=== PATIENT | male | born 1965 | race Caucasian/White ===

== ENCOUNTER 2016-11-10 14:20 | Emergency (ER) | payer BC ==
--- NOTE | 2016-11-10 15:02 | UC ---
Throat Pain/Nasal Ramirez HPI - HPI Summary HPI Summary: Increasing nasal and max. sinus pressure for about a week. Did not feel cold symptoms first, thinks this is allergy-related, as he typically has sinusitis in the fall and the spring. Denies fever or trouble breathing. - History of Current Complaint Chief Complaint: UCRespiratory Stated Complaint: SINUS INFECTION Time Seen by Provider: 11/10/16 14:51 Hx Obtained From: Patient Onset/Duration: Gradual Onset, Lasting Days Severity: Mild Cough: Productive Associated Signs & Symptoms: Positive: Sinus Discomfort, Nasal Discharge - Allergies/Home Medications Allergies/Adverse Reactions: Allergies Allergy/AdvReac Type Severity Reaction Status Date / Time No Known Allergies Allergy Verified 08/01/16 13:26 PMH/Surg Hx/FS Hx/Imm Hx Endocrine History Of: Reports: Diabetes - TYPE 1 Cardiovascular History Of: Reports: Hypertension - ON MEDS Respiratory History Of: Reports: Asthma - FROM , BEING TREATED - Surgical History Surgical History: Yes Surgery Procedure, Year, and Place: LEFT CATARACT, 2008, [facility]. WISDOM TEETH 1984 - Family History Known Family History: Positive: Hypertension - Social History Lives: With Family Alcohol Use: Occasionally Substance Use Type: None Smoking Status (MU): Never Smoked Tobacco Review of Systems Constitutional: Negative Skin: Negative Eyes: Negative ENT: Nasal Discharge Respiratory: Negative Cardiovascular: Negative Gastrointestinal: Negative Genitourinary: Negative Motor: Negative Neurovascular: Negative Musculoskeletal: Negative Neurological: Negative Psychological: Negative All Other Systems Reviewed And Are Negative: Yes Physical Exam Triage Information Reviewed: Yes Appearance: Well-Appearing, No Pain Distress, Obese Vital Signs: Initial Vital Signs Temp 97.7 F 11/10/16 14:24 Pulse 84 11/10/16 14:24 Resp 18 11/10/16 14:24 BP 230/96 11/10/16 14:24 Pulse Ox 97 11/10/16 14:24 Vital Signs Reviewed: Yes Eye Exam: Normal Eyes: Positive: Conjunctiva Clear ENT: Positive: Hearing grossly normal, Nasal congestion, TMs normal, Other: - maxiallary sinus tenderness Dental Exam: Normal Neck exam: Normal Neck: Positive: Supple, Nontender, No Lymphadenopathy Respiratory Exam: Normal Respiratory: Positive: Chest non-tender, Lungs clear, Normal breath sounds, No respiratory distress, No accessory muscle use Cardiovascular Exam: Normal Cardiovascular: Positive: RRR, No Murmur Musculoskeletal Exam: Normal Neurological Exam: Normal Psychological Exam: Normal Skin Exam: Normal Throat Pain/Nasal Course/Dx - Differential Dx/Diagnosis Provider Diagnoses: sinusitis Discharge - Discharge Plan Condition: Stable Disposition: HOME Prescriptions: Azithromycin [Azithromycin 500 MG TAB] 500 mg PO DAILY #6 tab Patient Education Materials: Sinusitis (ED) Referrals: Jose Manuel Young MD [Primary Care Provider] - Additional Instructions: Get a follow-up appointment with your primary care provider if you do not see some improvement within the next 4 days.
[2016-11-10 15:08] VITALS: BP 178/88
== END 2016-11-10 15:10 | disposition home or self-care (01) ==
LOC: UCEAST 14:20
DX: J32.9 Chronic sinusitis, unspecified (principal); J45.909 Unspecified asthma, uncomplicated; I10 Essential (primary) hypertension; Z98.42 Cataract extraction status, left eye; E66.9 Obesity, unspecified
CPT/HCPCS: 99212; G0463

== ENCOUNTER 2017-05-13 10:43 | Emergency (ER) | payer BC ==
[2017-05-13 10:50] VITALS: BP 179/91
--- NOTE | 2017-05-13 11:21 | UC ---
Throat Pain/Nasal Ramirez HPI - HPI Summary HPI Summary: HISTORY OF CHRONIC ALLERGIES IN . SEVERAL DAYS OF WORSENING SINUS PRESSURE. PRODUCTIVE COUGH. WHEEZING AND COUGH. HISTORY OF ASTHMA - History of Current Complaint Chief Complaint: UCRespiratory Stated Complaint: SINUS Time Seen by Provider: 05/13/17 10:55 Hx Obtained From: Patient Onset/Duration: Gradual Onset, Lasting Days, Still Present Severity: Moderate Cough: Productive Associated Signs & Symptoms: Positive: Hoarseness, Sinus Discomfort, Nasal Discharge - Epiglottits Risk Factors Epiglottis Risk Factors: Negative - Allergies/Home Medications Allergies/Adverse Reactions: Allergies Allergy/AdvReac Type Severity Reaction Status Date / Time No Known Allergies Allergy Verified 08/01/16 13:26 PMH/Surg Hx/FS Hx/Imm Hx Previously Healthy: Yes - Surgical History Surgical History: Yes Surgery Procedure, Year, and Place: LEFT CATARACT, 2008, [facility]. WISDOM TEETH 1984 - Family History Known Family History: Positive: Hypertension, Respiratory Disease - Social History Occupation: Employed Full-time Lives: With Family Alcohol Use: Occasionally Substance Use Type: None Smoking Status (MU): Never Smoked Tobacco Review of Systems Constitutional: Fatigue Skin: Negative Eyes: Negative ENT: Nasal Discharge, Sinus Congestion, Sinus Pain/Tenderness Respiratory: Cough Cardiovascular: Negative Gastrointestinal: Negative Genitourinary: Negative Motor: Negative Neurovascular: Negative Musculoskeletal: Negative Neurological: Negative Psychological: Negative All Other Systems Reviewed And Are Negative: Yes Physical Exam Triage Information Reviewed: Yes Appearance: No Pain Distress, Well-Nourished, Ill-Appearing Vital Signs: Initial Vital Signs Temp 98.5 F 05/13/17 10:47 Pulse 76 05/13/17 10:47 Resp 20 05/13/17 10:47 BP 179/91 05/13/17 10:47 Pulse Ox 100 05/13/17 10:47 Vital Signs Reviewed: Yes Eye Exam: Normal ENT Exam: Normal ENT: Positive: Normal ENT inspection, Hearing grossly normal, TMs normal Dental Exam: Normal Neck exam: Normal Neck: Positive: Supple, Nontender, No Lymphadenopathy Respiratory: Positive: Chest non-tender, Lungs clear, Normal breath sounds, No respiratory distress, No accessory muscle use Cardiovascular Exam: Normal Cardiovascular: Positive: RRR, No Murmur, Pulses Normal, Brisk Capillary Refill Abdominal Exam: Normal Musculoskeletal Exam: Normal Musculoskeletal: Positive: Strength Intact, ROM Intact Neurological Exam: Normal Psychological Exam: Normal Psychological: Positive: Normal Response To Family Skin Exam: Normal Throat Pain/Nasal Course/Dx - Differential Dx/Diagnosis Differential Diagnosis/HQI/PQRI: Pharyngitis, Sinusitis, URI Provider Diagnoses: SINUSITIS; BRONCHITIS WITH BRONCHOSPASM Discharge - Discharge Plan Condition: Stable Disposition: HOME Prescriptions: Azithromycin TAB* [Zithromax TAB (Z-CAROLINA) 250 mg #6 tabs] 250 mg PO DAILY #6 tab Fluticasone NASAL SPRAY 50MCG* [Flonase NASAL SPRAY 50MCG*] 2 spray BOTH NARES DAILY #1 btl Patient Education Materials: Sinusitis (ED), Acute Bronchitis (ED), Bronchospasm (ED) Referrals: Jose Manuel Young MD [Primary Care Provider] -
== END 2017-05-13 11:21 | disposition home or self-care (01) ==
LOC: UCEAST 10:43
DX: J32.9 Chronic sinusitis, unspecified (principal); J20.9 Acute bronchitis, unspecified
CPT/HCPCS: 99212; G0463

== ENCOUNTER 2019-10-19 11:04 | Emergency (ER) | payer BC ==
--- OUTSIDE RECORDS SUMMARY | 2019-10-19 11:08 | XMS REPORT | Summary of Care ---
:1965 Author Organization [facility] Address [address] [place] [address] Care Team Providers Name Role Phone Jose Manuel Young MD Primary Care Provider Reason for Referral Diagnostic Radiology (Routine) Status Reason Specialty Diagnoses / Referred By Contact Referred To Procedures Contact Authorized Radiology Diagnoses Preoperative examination, unspecified Transplant Procedures NM Myocard Perfusion SPECT Multiple Study Stress Provider-Based [address] [address] Reason for Visit Diagnostic Radiology (Routine) Status Reason Specialty Diagnoses / Referred By Contact Referred To Procedures Contact Authorized Radiology Diagnoses Preoperative examination, unspecified Transplant Procedures NM Myocard Perfusion SPECT Multiple Study Stress Provider-Based [address] [address] Encounter Details Date Type Department Care Team Description 10/07/2019 Hospital Encounter Nuclear Medicine [facility], [facility] Kerwin Mendes MD examination, [facility] [address] unspecified [place], [place] [address]nd [address] [address] [place] [address] [phone] Allergies Active Allergy Reactions Severity Noted Date Comments Hydralazine Shortness Of Breath High 10/07/2019 documented as of this encounter (statuses as of 10/08/2019) Medications Medication Sig Dispensed Refills Start Date End Date Status Insulin Lispro 100 Inject into the 0 Active UNIT/ML Subcutaneous skin Three times Solution (HumaLOG) daily before meals Albuterol Sulfate HFA Inhale 2 puffs 0 Active 108 (90 Base) MCG/ACT into the lungs Inhalation Aerosol every 6 (six) Solution (PROVENTIL hours as needed HFA;VENTOLIN HFA) for Wheezing amLODIPine Besylate 10 Take 10 mg by 0 Active MG Oral Tablet mouth daily (NORVASC) Levothyroxine Sodium Take 100 mcg by 0 Active 100 MCG Oral Tablet mouth Daily (SYNTHROID, LEVOTHROID) Aspirin 81 MG Oral Take 81 mg by 0 Active Tablet Delayed Release mouth daily Atorvastatin Calcium 40 Take 40 mg by 0 Active MG Oral Tablet mouth every (LIPITOR) evening Metoprolol Succinate ER Take 200 mg by 0 Active 50 MG Oral Tablet mouth daily Extended Release 24 Hour (TOPROL-XL) Vitamin D3 25 MCG (1000 Take 1,000 Units 0 Active UT) Oral Tablet by mouth daily (CHOLECALCIFEROL) Furosemide 20 MG Oral Take 20 mg by 0 Active Tablet (LASIX) mouth daily documented as of this encounter (statuses as of 10/08/2019) Active Problems Problem Noted Date CKD (chronic kidney disease), stage IV Diabetes mellitus, type II Hypertension documented as of this encounter (statuses as of 10/08/2019) Social History Tobacco Use Types Packs/Day Years Used Date Never Assessed 0 Sex Assigned at Date Recorded Not on file Job Start Date Occupation Industry Not on file Not on file Not on file Travel History Travel Start Travel End No recent travel history available. documented as of this encounter Last Filed Vital Signs Not on filedocumented in this encounter Plan of Treatment Date Type Specialty Care Team Description 10/08/2019 Appointment Radiology Kerwin Mckenzie MD [address] [address] 10/08/2019 Appointment Radiology Kerwin Mckenzie MD [address] [phone] 08/12/2020 Office Visit Transplant Name Type Priority Associated Diagnoses Date/Time NM Myocard Perfusion Imaging Routine Preoperative examination, 10/07/2019 10:37 AM SPECT Multiple Study unspecified EST Stress Name Type Priority Associated Diagnoses Order Schedule NM Myocard Perfusion Imaging Routine Preoperative As Needed for 1 SPECT Multiple Study examination, unspecified Occurrences starting Stress 10/07/2019 until 10/07/2019 Health Maintenance Due Date Last Done Comments MMR Vaccines (1 of 1 - Standard 1964 series) Varicella Vaccines (1 of 2 - 1966 2-dose childhood series) Pneumococcal Vaccine: Pediatrics 1969 (0 to 5 Years) and At-Risk Patients (6 to 64 Years) (1 of 1 - PPSV23) Diabetic Foot Exam 1981 Dilated Retinal Exam 1981 Hemoglobin A1c 1981 Urine Microalbumin 1981 Hepatitis B Vaccines (1 of 3 - 1982 Risk 3-dose series) DTaP,Tdap,and Td Vaccines (2 - Td) 08/13/2015 07/16/2015 Influenza Vaccine 06/11/2019 Lipid Disorder Screening 08/05/2020 08/05/2019 Colon Cancer Screening 10 yrs 08/01/2026 08/01/2016 Pneumococcal Vaccine: 65+ Years (1 2028 of 2 - PCV13) HIV Screening Completed 08/05/2019 Hepatitis C Screening (B. Completed 08/05/2019 [id number]) HIB Vaccines Aged Out No longer eligible based on patient's age to complete this topic Hepatitis A Vaccines Aged Out No longer eligible based on patient's age to complete this topic IPV Vaccines Aged Out No longer eligible based on patient's age to complete this topic documented as of this encounter Results Not on filedocumented in this encounter Visit Diagnoses Diagnosis Preoperative examination, unspecified documented in this encounter Administered Medications Medication Order MAR Action Action Date Dose Rate Site TC-99M sestamibi New Bag 10/07/2019 10:45 AM 31.4 millicuries (CARDIOLITE) EST Intravenous, Once, 10/07/19 at 1045, For 1 dose, Imaging Protocol documented in this encounter
--- OUTSIDE RECORDS SUMMARY | 2019-10-19 11:08 | XMS REPORT | Summary of Care ---
:1965 Author Organization [facility] Address [address] [place] [address] Care Team Providers Name Role Phone Jose Manuel Young MD Primary Care Provider Reason for Visit Diagnostic Radiology (Routine) Status Reason Specialty Diagnoses / Referred By Referred To Procedures Contact Contact Authorized Diagnostic Diagnoses Preoperative examination, unspecified Transplant Radiology Procedures Echocardiogram 2D complete Provider-Based Uh [address] [facility] 2 [facility] [address] [place] [phone] Encounter Details Date Type Department Care Team Description 10/07/2019 Hospital Encounter Echocardiology [facility], [facility] [address] [place] [address] [address] [facility] [phone] [address] [place] [address] Allergies Active Allergy Reactions Severity Noted Date Comments Hydralazine Shortness Of Breath High 10/07/2019 documented as of this encounter (statuses as of 10/11/2019) Medications Medication Sig Dispensed Refills Start Date [...] as of this encounter (statuses as of 10/11/2019) Active Problems Problem Noted Date CKD (chronic kidney disease), stage IV Diabetes mellitus, type II Hypertension documented as of this encounter (statuses as of 10/11/2019) Social History Tobacco Use Types Packs/Day Years [...] Treatment Date Type Specialty Care Team Description 08/12/2020 Office Visit Transplant Health Maintenance Due Date Last Done Comments [...] 08/05/2019 Hepatitis C Screening (B. Completed 08/05/2019 [id number]) HIB Vaccines Aged Out No longer eligible based on patient's age to complete this topic Hepatitis A Vaccines Aged Out No longer eligible based on patient's age to complete this topic IPV Vaccines Aged Out No longer eligible based on patient's age to complete this topic documented as of this encounter Procedures Procedure Name Priority Date/Time Associated Diagnosis Comments ECHOCARDIOGRAM 2D Routine 10/07/2019 9:55 Preoperative Results for this COMPLETE AM EST examination, procedure are in unspecified the results section. documented in this encounter Results Echocardiogram 2D complete (10/07/2019 9:55 AM EST) Left Ventricular EF by Teichholz 40 [facility] ECHO Method Specimen Narrative Performed At HEIGHT: 180.3 cm (5 ft 11.0 in) [facility] ECHO WEIGHT: 113.4 kg (250.0 lbs) BP: BSA: FINDINGS ------- TYPE OF REPORT:This is a complete two-dimensional transthoracic echocardiogram (2D, M-mode, Doppler and color flow Doppler). ECG RHYTHM:Sinus rhythm. Resting bradycardia (HR<60bpm). STUDY QUALITY:This was a technically difficult study with limited images. LEFT VENTRICLE:The left ventricle is mildly dilated. Left ventricular wall thickness is normal. No obvious apical thrombus visualized. Overall LV systolic function is moderately reduced. Estimated LVEF 40%. There is diffuse hypokinesis of all onofre. RIGHT VENTRICLE:The right ventricle is normal in size. Right ventricular wall thickness is mildly increased. The right ventricular systolic function is mildly impaired. LEFT ATRIUM:The left atrium size by volume measurement is mildly abnormal (35-41 ml/m2). RIGHT ATRIUM:The right atrium is mildly enlarged. The right atrium size by volume measurement is abnormal. AORTIC VALVE:There is mild aortic valve sclerosis without stenosis. There is no aortic stenosis. There is no aortic regurgitation. MITRAL VALVE:Both mitral leaflets are mildly thickened. There is trace mitral regurgitation. There is no mitral stenosis. PULMONIC VALVE:Trace/mild (physiologic) pulmonic regurgitation present. TRICUSPID VALVE:The tricuspid valve was not well visualized. PERICARDIUM:There is a trivial pericardial effusion present. There is no evidence of cardiac tamponade. AORTA:The aortic root is dilated. IVC / HEPATIC VEINS:The inferior vena cava is normal in size with preserved inspiratory collapse. CONCLUSIONS 1. The left ventricle is mildly dilated. 2. Overall LV systolic function is moderately reduced. 3. Estimated LVEF 40%. 4. There is diffuse hypokinesis of all onofre. 5. Right ventricular wall thickness is mildly increased. 6. The right ventricular systolic function is mildly impaired. 7. The left atrium size by volume measurement is mildly abnormal (35-41 ml/m2). 8. The right atrium is mildly enlarged. 9. There is no aortic regurgitation. 10. There is trace mitral regurgitation. 11. Trace/mild (physiologic) pulmonic regurgitation present. 12. There is a trivial pericardial effusion present. 13. The aortic root is dilated(4.09cm). 14. The inferior vena cava is normal in size with preserved inspiratory collapse. 15. No prior reports available for comparison. Conclusions completed MEASUREMENTS Ao Diam: 4.09 cm LA Diam: 3.26 cm IVSd: 1.05 cm LVIDd: 5.95 cm LVPWd: 1.08 cm RV base: 5.12 cm RWT: 0.36 LALd A4C: 6.28 cm LAAd A4C: 24.71 cm LAEDV A-L A4C: 82.54 ml LAEDV MOD A4C: 74.88 ml LALd A2C: 5.38 cm LAAd A2C: 24.14 cm LAEDV A-L A2C: 92.01 ml LAEDV MOD A2C: 85.79 ml LAEDV(A-L): 94.19 ml LAEDV Index (A-L): 40.60 ml/m LAEDV(MOD BP): 84.95 ml LAEDVInd MOD BP: 36.62 ml/m RALd: 5.08 cm Obie A4C: 24.67 cm RAEDV A-L: 101.70 ml RAEDV INDEX: 43.84 ml/m RALs: 3.86 cm RAAs A4C: 12.99 cm RAESV A-L: 37.13 ml RAESV INDEX: 16.00 ml/m MV E Maksim: 0.70 m/s MV DecT: 340.60 ms MV Dec [place]: 2.05 m/s MV A Maksim: 0.52 m/s MV E/A Ratio: 1.34 MV PHT: 98.78 ms MVA By PHT: 2.23 cm LVOT Vmax: 0.81 m/s LVOT Vmean: 0.56 m/s LVOT maxP.65 mmHg LVOT meanP.38 mmHg AV Vmax: 0.89 m/s AV Vmean: 0.64 m/s AV maxP.19 mmHg AV meanP.77 mmHg AV VTI: 20.53 cm DVI: 1.05 Electronically Signed By: John Cm Sr, MD [facility] Electronically Signed On: 10/07/2019 11:34:46 Procedure Note Interface, Received Via [employer] - 10/07/2019 11:40 AM EST HEIGHT: 180.3 cm (5 ft 11.0 in) WEIGHT: 113.4 kg (250.0 lbs) BP: BSA: FINDINGS ------- TYPE OF REPORT:This is a complete two-dimensional transthoracic echocardiogram (2D, M-mode, Doppler and color flow Doppler). ECG RHYTHM:Sinus rhythm. Resting bradycardia (HR<60bpm). STUDY QUALITY:This was a technically difficult study with limited images. LEFT VENTRICLE:The left ventricle is mildly dilated. Left ventricular wall thickness is normal. No obvious apical thrombus visualized. Overall LV systolic function is moderately reduced. Estimated LVEF 40%. There is diffuse hypokinesis of all onofre. RIGHT VENTRICLE:The right ventricle is normal in size. Right ventricular wall thickness is mildly increased. The right ventricular systolic function is mildly impaired. LEFT ATRIUM:The left atrium size by volume measurement is mildly abnormal (35- 41 ml/m2). RIGHT ATRIUM:The right atrium is mildly enlarged. The right atrium size by volume measurement is abnormal. AORTIC VALVE:There is mild aortic valve sclerosis without stenosis. There is no aortic stenosis. There is no aortic regurgitation. MITRAL VALVE:Both mitral leaflets are mildly thickened. There is trace mitral regurgitation. There is no mitral stenosis. PULMONIC VALVE:Trace/mild (physiologic) pulmonic regurgitation present. TRICUSPID VALVE:The tricuspid valve was not well visualized. PERICARDIUM:There is a trivial pericardial effusion present. There is no evidence of cardiac tamponade. AORTA:The aortic root is dilated. IVC / HEPATIC VEINS:The inferior vena cava is normal in size with preserved inspiratory collapse. CONCLUSIONS 1. The left ventricle is mildly dilated. 2. Overall LV systolic function is moderately reduced. 3. Estimated LVEF 40%. 4. There is diffuse hypokinesis of all onofre. 5. Right ventricular wall thickness is mildly increased. 6. The right ventricular systolic function is mildly impaired. 7. The left atrium size by volume measurement is mildly abnormal (35-41 ml/m2). 8. The right atrium is mildly enlarged. 9. There is no aortic regurgitation. 10. There is trace mitral regurgitation. 11. Trace/mild (physiologic) pulmonic regurgitation present. 12. There is a trivial pericardial effusion present. 13. The aortic root is dilated(4.09cm). 14. The inferior vena cava is normal in size with preserved inspiratory collapse. 15. No prior reports available for comparison. Conclusions completed MEASUREMENTS Ao Diam: 4.09 cm LA Diam: 3.26 cm IVSd: 1.05 cm LVIDd: 5.95 cm LVPWd: 1.08 cm RV base: 5.12 cm RWT: 0.36 LALd A4C: 6.28 cm LAAd A4C: 24.71 cm LAEDV A-L A4C: 82.54 ml LAEDV MOD A4C: 74.88 ml LALd A2C: 5.38 cm LAAd A2C: 24.14 cm LAEDV A-L A2C: 92.01 ml LAEDV MOD A2C: 85.79 ml LAEDV(A-L): 94.19 ml LAEDV Index (A-L): 40.60 ml/m LAEDV(MOD BP): 84.95 ml LAEDVInd MOD BP: 36.62 ml/m RALd: 5.08 cm Obie A4C: 24.67 cm RAEDV A-L: 101.70 ml RAEDV INDEX: 43.84 ml/m RALs: 3.86 cm RAAs A4C: 12.99 cm RAESV A-L: 37.13 ml RAESV INDEX: 16.00 ml/m MV E Maksim: 0.70 m/s MV DecT: 340.60 ms MV Dec [place]: 2.05 m/s MV A Maksim: 0.52 m/s MV E/A Ratio: 1.34 MV PHT: 98.78 ms MVA By PHT: 2.23 cm LVOT Vmax: 0.81 m/s LVOT Vmean: 0.56 m/s LVOT maxP.65 mmHg LVOT meanP.38 mmHg AV Vmax: 0.89 m/s AV Vmean: 0.64 m/s AV maxP.19 mmHg AV meanP.77 mmHg AV VTI: 20.53 cm DVI: 1.05 Electronically Signed By: John Cm Sr, MD [facility] Electronically Signed On: 10/07/2019 11:34:46 Performing Organization Address City/State/Zipcode Phone Number U ECHO documented in this encounter
--- OUTSIDE RECORDS SUMMARY | 2019-10-19 11:08 | XMS REPORT | Summary of Care ---
:1965 Author Organization [facility] Address [address] [facility] [place] [address] Care Team Providers Name Role Phone None, [place] Primary Care Provider Unavailable Reason for Visit Reason Comments Chronic Kidney Disease Stage 4 CKD being worked up for transplant. Hyperglycemia Type 1 DM. 2 week average BG 163 mg/dl and last A1C at 9.0. Weight Problem Has lost about 30 lbs, but wants to lose more weight for BG/A1C and transplant. 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, with long-term current use of insulin ([facility]) ( Primary Dx); Medicine RD CKD (chronic kidney disease), stage IV ([facility]); [address] [facility] BMI 35.0-35.9,[place] [address] [place] [address] [phone] Allergies Active Allergy Reactions Severity Noted Date Comments [place] Other 10/10/2019 Raw salmon documented as of this encounter (statuses as of 10/10/2019) Medications Medication Sig Dispensed Refills Start Date End Date Status Insulin Lispro 100 Inject beneath 0 Active UNIT/ML Subcutaneous the skin THREE Solution TIMES DAILY CartridgeIndications: BEFORE MEALS. Type 1 Diabetes Indications: Mellitus, On insulin Insulin-Dependent pump Diabetes, On insulin pump atorvastatin (LIPITOR) Take 40 mg by 0 Active 40 MG Oral Tab mouth DAILY. furosemide (LASIX) 20 Take 20 mg by 0 Active MG Oral Tab mouth DAILY. levothyroxine Take 100 mcg by 0 Active (SYNTHROID\\UNITHROID) mouth DAILY. 100 MCG Oral Tab amLodipine (NORVASC) 10 Take 10 mg by 0 Active MG Oral Tab mouth DAILY. metoprolol succinate Take 200 mg by 0 Active (TOPROL XL) 50 MG Oral mouth DAILY. 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 documented as of this encounter Last Filed Vital Signs Vital Sign Reading Time Taken Comments Blood Pressure - - Pulse - - Temperature - - Respiratory Rate - - Oxygen Saturation - - Inhaled Oxygen Concentration - - Weight 114.8 kg (253 lb) 10/10/2019 10:10 AM EST Height 180.3 cm (5' 11") 10/10/2019 10:10 AM EST Body Mass Index 35.29 10/10/2019 10:10 AM EST documented in this encounter Patient Instructions Patient InstructionsCarmen Andrade RD - 10/10/2019 9:00 AM ESTFollow reduced fat, 1500 mg potassium, 2000 mg sodium, 65-70 gm protein, consistent carbohydrate - 45 gram per meal, 1800 calorie meal plan. Include 2-3 fruits and at least 3 vegetables per day. Low potassium fruits and vegetables. Include 25 to 35 grams of fiber per day. High fiber pasta (Barilla Plus), bread, cereal/bars, limit to 1/2 cup beans, peas, corn, limit to 1/2 cup or 1/2 potato/sweet potato or winter squash, brown or wild rice, berries, apples, pears , kiwi, oats, quinoa, and bulgur. 4-6 (8 ounce) glasses of water daily. Limit milk to 1 cup or less per day. Limit fat intake - oil, butter, mayorga - use olive oil mayorga, nuts/nut butters, cheese, fried foods. Have a meal with carbohydrates within 1-2 hours of exercise or have a snack before exercising. No more than 4-5 hours between meals and snacks. Use ip.access for meal planning and recipes. Weight loss goal: 1-2 lbs per week to lose 30 lbs and reach 225 lbs. Exercise goal: per cardiac recommendations. Low intensity activity - 30 minutes per day if allowed. Follow up visit in 3 months. documented in this encounter Progress Notes Carmen Andrade RD - 10/10/2019 9:00 AM EST PATIENT: Samuel Szymanski : 1965 DATE OF SERVICE: 10/10/2019 REFERRING PRACTITIONER: Parminder Jurado PRIMARY CARE PROVIDER: None, [place] CHIEF COMPLAINT: Chief Complaint Patient presents with Chronic Kidney Disease Stage 4 CKD being worked up for transplant. Hyperglycemia Type 1 DM. 2 week average BG 163 mg/dl and last A1C at 9.0. Weight Problem Has lost about 30 lbs, but wants to lose more weight for BG/A1C and transplant. SUBJECTIVE: Samuel is a 54-y.o. male who presents for CKD and Diabetes Self Management and weight loss education as a new visit. 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 Previous Diabetes Education: multiple. Patient has been followed for this diagnosis for 30 years. Psychosocial/Stress Issues: May need dialysis soon but does not want to go on dialysis. Hopes to have renal transplant and avoid dialysis. Has new cardiac issues which are still being evaluated. Diabetes Complications: CKD stage IV Adequate funds for food per month: yes Confidence to make lifestyle changes: Yes, has already reduced intake of K+ and Na and has lost some weight. Patient's learning objective: To learn how to balance diet for diabetes, renal , and weight loss. Support System: He is currently managing his diabetes with an insulin pump. Just got a new pump with CGM which he isnot using yet. Understands how medications work: yes. GLUCOSE MONITORING: Meter: Has a Contour Next meter Washes hands before checking blood sugar: yes Home blood sugar records: Average glucose at 163 mg/dl - 2 week average. Any episodes of hypoglycemia? occasionally Patient has received The Rule of 15 guidelines for Low Blood Sugar treatment. CURRENT EATING HABITS: Food questions: Which high K+ foods to avoid and how many mgs of K+ to include daily? Are granolabars healthy snacks? Dislikes/aversion/intolerance to: Allergy to salmon. Likes most foods. Breakfast: Strawberries or blueberries and 1/2 cup of milk OR rye toast or [place] muffin OR veggie omelet. Lunch: [place] with egg salad or chicken or once a week has deli meat sandwich OR salad with carrots, broccoli, and onion with chicken on it. Drinks water or Sprite Zero. Dinner: Chicken, noodles and steamed green beans, cauliflower or broccoli. Drinks water. Snacks: low fat granola bar, popcorn, cereal with 1/2 cup of milk, or an apple. EXERCISE: walking small amount per day. Factors which prevent exercise: Samuel had a recent cardiac workup and has been told to avoid high intensity activity like shoveling and running. He is going to have further testing. No past medical history on file. No past surgical history on file. No family history on file. Social History Socioeconomic History Marital status: Spouse name: Not on file Number of children: Not on file Years of education: Not on file Highest education level: Not on file Occupational History Not on file Social Needs Financial resource strain: Not on file Food insecurity Worry: Not on file Inability: Not on file Transportation needs Medical: Not on file Non-medical: Not on file Tobacco Use Smoking status: Not on file Substance and Sexual Activity Alcohol use: Not on file Drug use: Not on file Sexual activity: Not on file Lifestyle Physical activity Days per week: Not on file Minutes per session: Not on file Stress: Not on file Relationships Social connections Talks on phone: Not on file Gets together: Not on file Attends druze service: Not on file Active member of club or organization: Not on file Attends meetings of clubs or organizations: Not on file Relationship status: Not on file Intimate partner violence Fear of current or ex partner: Not on file Emotionally abused: Not on file Physically abused: Not on file Forced sexual activity: Not on file Other Topics Concern Not on file Social History Narrative Not on file Allergies Allergen Reactions [place] Other Raw salmon Current Outpatient Medications Medication Sig amLodipine (NORVASC) 10 MG Oral Tab Take 10 mg by mouth DAILY. atorvastatin (LIPITOR) 40 MG Oral Tab Take 40 mg by mouth DAILY. furosemide (LASIX) 20 MG Oral Tab Take 20 mg by mouth DAILY. Insulin Lispro 100 UNIT/ML Subcutaneous Solution Cartridge Inject beneath the skin THREE TIMES DAILY BEFORE MEALS. Indications: Insulin-Dependent Diabetes, On insulin pump levothyroxine (SYNTHROID\\UNITHROID) 100 MCG Oral Tab Take 100 mcg by mouth DAILY. metoprolol succinate (TOPROL XL) 50 MG Oral TABLET SR 24 HR Take 200 mg by mouth DAILY. No current facility-administered medications for this visit. VITALS: Ht 5' 11" (1.803 m) Wt 253 lb (114.8 kg) BMI 35.29 kg/m2 Wt Readings from Last 5 Encounters: 10/10/19 253 lb (114.8 kg) IMPRESSION: Samuel verbalizes understanding and motivation to make the necessary lifestyle changes as recommendedtoday. I have reviewed verbally and reinforced with written materials: [employer] Planning Healthy Meals handout and Carbohydrate Counting and Meal Planning Guide. Discussed the benefits of healthy balanced meals and reviewed the concepts of portion control, exercise and the relationship between blood sugars, exercise, food and medications. Renal diet handout and sample menu. [employer] in the [employer] - restaurant food guide. Barriers to behavior change: Samuel would like to do some physical activity, but needs to wait to getcleared from cardiology. He needs to lose weight to have renal transplant and if he loses a bit more, may be able to get a pancreas and kidney transplant. He may need dialysis before he is able to get transplant. A1C was better when he had a CGM, but harder to control without it and insurance wouldnot cover it until now with new pump. Patient selected behaviors: Patient has chosen to: Increase physical activity when cleared to 30 minutes daily of low intensity exercise. Patient has chosen to: Reduce fat intake to help with weight loss and heart health. See patient instructions for details. Patient Instructions Follow reduced fat, 1500 mg potassium, 2000 mg sodium, 65-70 gm protein, consistent carbohydrate - 45 gram per meal, 1800 calorie meal plan. Include 2-3 fruits and at least 3 vegetables per day. Low potassium fruits and vegetables. Include 25 to 35 grams of fiber per day. High fiber pasta (Barilla Plus), bread, cereal/bars, limit to 1/2 cup beans, peas, corn, limit to 1/2 cup or 1/2 potato/sweet potato or winter squash, brown or wild rice, berries, apples, pears , kiwi, oats, quinoa, and bulgur. 4-6 (8 ounce) glasses of water daily. Limit milk to 1 cup or less per day. Limit fat intake - oil, butter, mayorga - use olive oil mayorga, nuts/nut butters, cheese, fried foods. Have a meal with carbohydrates within 1-2 hours of exercise or have a snack before exercising. No more than 4-5 hours between meals and snacks. Use ip.access for meal planning and recipes. Weight loss goal: 1-2 lbs per week to lose 30 lbs and reach 225 lbs. Exercise goal: per cardiac recommendations. Low intensity activity - 30 minutes per day if allowed. Follow up visit in 3 months. Time spent with the patient today, 60 minutes of Diabetes Self Management Education: Nutrition. Author: Carmen Andrade, MPH, RD, CDN, CDE 10/10/2019, 11:42 documented in this encounter Plan of Treatment Date Type Specialty Care Team Description 01/09/2020 Office Visit Internal Medicine Carmen Andrade, BARNEY [address] [place] [address] [phone] Name Type Priority Associated Diagnoses Order Schedule MNT INITIAL EACH 15 Procedures Routine Type 1 diabetes mellitus Ordered: MIN with kidney complication, with long-term current use of insulin (HCC) Health Maintenance Due Date Last Done Comments Diabetic Eye Exam 1965 HEMOGLOBIN A1C 1965 PNEUMOCOCCAL 0-64 YRS (1 of 3 - 1969 PCV13) DTaP/Tdap/Td Vaccines (1 - Tdap) 1974 DEPRESSION SCREENING 1975 HIV SCREENING 1978 FOOT EXAM 1981 HEPATITIS C SCREENING 2003 Colonoscopy 2013 ZOSTER IMMUNIZATION SERIES (1 of 2013 2) INFLUENZA VACCINE (#1) 2019 LIPID DISORDER SCREENING 10/10/2020 10/10/2019 HEPATITIS A IMMUNIZATION SERIES Aged Out No longer eligible based on patient's age to complete this topic HPV IMMUNIZATION SERIES Aged Out No longer eligible based on patient's age to complete this topic MENINGOCOCCAL VACCINE IMM Aged Out No longer eligible based on patient's age to complete this topic documented as of this encounter Results Not on filedocumented in this encounter Visit Diagnoses Diagnosis 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 xxxxxxxxxxxx 2018-Present [employer] ([place]) [place] [address] documented as of this encounter
--- OUTSIDE RECORDS SUMMARY | 2019-10-19 11:08 | XMS REPORT | Summary of Care ---
:1965 Author Organization [facility] Address [address] [place] [address] Care Team Providers Name Role Phone Jose Manuel Young MD Primary Care Provider Encounter Details Date Type Department Care Team Description 10/08/2019 Hospital Encounter Nuclear Medicine Kerwin Mckenzie, [facility] [address] [address] [place] [id number] [place] [address] Allergies Active Allergy Reactions Severity Noted Date Comments Hydralazine Shortness Of Breath High 10/07/2019 documented as of this encounter (statuses as of 10/09/2019) Medications Medication Sig Dispensed Refills Start Date [...] as of this encounter (statuses as of 10/09/2019) Active Problems Problem Noted Date CKD (chronic kidney disease), stage IV Diabetes mellitus, type II Hypertension documented as of this encounter (statuses as of 10/09/2019) Social History Tobacco Use Types Packs/Day Years [...] 08/05/2019 Hepatitis C Screening (B. Completed 08/05/2019 [id number]) HIB Vaccines Aged Out No longer eligible based on patient's age to complete this topic Hepatitis A Vaccines Aged Out No longer eligible based on patient's age to complete this topic IPV Vaccines Aged Out No longer eligible based on patient's age to complete this topic documented as of this encounter Procedures Procedure Name Priority Date/Time Associated Diagnosis Comments NM MYOCARD Routine 10/08/2019 11:05 Preoperative Results for this PERFUSION SPECT AM EST examination, procedure are in MULTIPLE STUDY unspecified the results STRESS 24366 section. documented in this encounter Results NM Myocard Perfusion SPECT Multiple Study Stress (10/08/2019 11:05 AM EST) Specimen Impressions Performed At IMPRESSION: [facility] 1. Moderate-sized, predominantly fixed defect in the inferior wall with a small area of brandy-infarct ischemia. 2. Mild diminished activity throughout the anterior wall during both stress and rest. This may represent soft tissue attenuation, however, small area of ischemia is not excluded. 3. There is moderate left ventricular dilatation and mild global hypokinesis. 4. Ejection fraction is 42%. Findings were discussed with Dr. Kerwin Mckenzie by Dr. Leti Mares via phone on 10/08/2019 3:43 PM. Narrative Performed At [facility] INDICATION: Kidney Transplant evaluation. PROCEDURE: The patient had a dose of 0.4 mg of Lexiscan infused during 20 seconds. TECHNIQUE: The patient had myocardial perfusion imaging performed using a two day imaging protocol, with the injection of 33 mCi of Tc-99m sestamibi at rest, and the injection of 31.4 mCi of Tc-99m sest amibi at peak stress. Images were acquired by tomographic technique without attenuation correction. Rest and post stress images were EKG gated. FINDINGS: Rest and post-stress acquisition were technically satisfactory. There is some subdiaphragmatic activity which may produce artifact. The left ventricle is moderately dilated. No changes in LV cavity size occurred between rest and stress. Wall thickness is normal. There is moderate global hypokinesis. There is a moderate-sized, predominantly fixed defect in the inferior wall with a small area of brandy-infarct ischemia. Total myocardial reversibility is 7% . There is mild diminished activity throughout the anterior wall during both stress and rest. This may represent soft tissue attenuation, however is suspicious for ischemia. LVEF was calculated at 42%%. Procedure Note Interface, Received Via [employer] [facility] - 10/08/2019 4:14 PM EST INDICATION: Kidney Transplant evaluation. PROCEDURE: The patient had a dose of 0.4 mg of Lexiscan infused during 20 seconds. TECHNIQUE: The patient had myocardial perfusion imaging performed using a two day imaging protocol, with the injection of 33 mCi of Tc-99m sestamibi at rest, and the injection of 31.4 mCi of Tc-99m sestamibi at peak stress. Images were acquired by tomographic technique without attenuation correction. Rest and post stress images were EKG gated. FINDINGS: Rest and post-stress acquisition were technically satisfactory. There is some subdiaphragmatic activity which may produce artifact. The left ventricle is moderately dilated. No changes in LV cavity size occurred between rest and stress. Wall thickness is normal. There is moderate global hypokinesis. There is a moderate-sized, predominantly fixed defect in the inferior wall with a small area of brandy-infarct ischemia. Total myocardial reversibility is 7% . There is mild diminished activity throughout the anterior wall during both stress and rest. This may represent soft tissue attenuation, however is suspicious for ischemia. LVEF was calculated at 42%%. IMPRESSION: 1. Moderate-sized, predominantly fixed defect in the inferior wall with a small area of brandy-infarct ischemia. 2. Mild diminished activity throughout the anterior wall during both stress and rest. This may represent soft tissue attenuation, however, small area of ischemia is not excluded. 3. There is moderate left ventricular dilatation and mild global hypokinesis. 4. Ejection fraction is 42%. Findings were discussed with Dr. Kerwin Mckenzie by Dr. Leti Mares via phone on 10/08/2019 3:43 PM. Performing Organization Address City/State/Zipcode Phone Number [facility] [address] [place] [address] documented in this encounter
--- OUTSIDE RECORDS SUMMARY | 2019-10-19 11:08 | XMS REPORT | Summary of Care ---
:1965 Author Organization [facility] Address [address] [place] [address] Care Team Providers Name Role Phone Jose Manuel Young MD Primary Care Provider Reason for Referral Diagnostic Radiology (Routine) Status Reason Specialty Diagnoses / Referred By Referred To Procedures Contact Contact Authorized Diagnostic Diagnoses Preoperative examination, unspecified Transplant Radiology Procedures Echocardiogram 2D complete Provider-Based [address] [address] Diagnostic Radiology (Routine) Status Reason Specialty Diagnoses / Referred By Referred To Procedures Contact Contact Authorized Diagnostic Diagnoses Preoperative examination, unspecified Transplant Radiology Procedures Stress test, pharmacological with nuc med myocardial perfusion SPECT (stress/ rest) Provider-Based [address] [address] Reason for Visit Diagnostic Radiology (Routine) Status Reason Specialty Diagnoses / Referred By Referred To Procedures Contact Contact Authorized Diagnostic Diagnoses Preoperative examination, unspecified Transplant Radiology Procedures Stress test, pharmacological with nuc med myocardial perfusion SPECT (stress/ rest) Provider-Based [address] [address] Encounter Details Date Type Department Care Team Description 10/07/2019 Hospital Encounter Echocardiology CC Magaly, Preoperative [address] Kerwin Mendes MD examination, [place] [address] [address] unspecified [phone] [place] [address] [phone] Allergies Not on filedocumented as of this encounter (statuses as of [...] - Inhaled Oxygen Concentration - - Weight 112.9 kg (249 lb) 10/07/2019 9:00 AM EST Height - - Body Mass Index 34.73 08/05/2019 11:25 AM EST documented in this encounter Plan of Treatment [...] 08/05/2019 Hepatitis C Screening (B. Completed 08/05/2019 [id number]) HIB Vaccines Aged Out No longer eligible based on patient's age to complete this topic Hepatitis A Vaccines Aged Out No longer eligible based on patient's age to complete this topic IPV Vaccines Aged Out No longer eligible based on patient's age to complete this topic documented as of this encounter Procedures Procedure Name Priority Date/Time Associated Diagnosis Comments STRESS TEST, Routine 10/07/2019 10:36 Preoperative Results for this PHARMACOLOGICAL WITH AM EST examination, procedure are in NUC MED MYOCARDIAL unspecified the results PERFUSION SPECT section. (REST/STRESS) ECHOCARDIOGRAM 2D Routine 10/07/2019 9:55 Preoperative Results for this COMPLETE AM EST examination, procedure are in unspecified the results section. documented in this encounter Results Stress test, pharmacological with nuc med myocardial perfusion SPECT (stress/ rest) (10/07/2019 10:36AM EST) Specimen Narrative Performed At : [facility] EKG Baseline EKG showed sinus bradycardia(59bpm) with ST-T : abnormalities. With : Lexiscan administration,there was no significant net : ST-displacement,PVC or : chest pain. There were rare PACs. The O2 saturation was 96%RA : before and 99%RA : after the test. : CONCLUSION: Negative for ischemia by EKG criteria. Rare PACs. : Nuclear scan is : pending. : : Confirmed by John Cm ([id number]) on 10/07/2019 11:35:54 : AM Protocol Name: LEXISCAN Time In Exercise Phase: 00:04:00 Max. Systolic BP: 192 mmHg Max Diastolic BP: 90 mmHg Max Heart Rate: 70 BPM Max Predicted Heart Rate: 164 BPM Target HR Formula: (220 - Age)*85% Reason for Test: Pre-Op Evaluation Arrhythmias: atrial premature beats-isolated Resting ECG: abnormal ST Changes: none Overall Impression: Normal stress test Chest Pain: none HR Response To Exercise: BP Response To Exercise: Reason For Termination: Test protocol completed : albuterol, asa, atorvastatin : amlodipine, lasix, humalog, : Levothyroxine, Metoprolol : D3 Procedure Note Interface, Received Via [employer] - 10/07/2019 11:36 AM EST : Baseline EKG showed sinus bradycardia(59bpm) with ST-T : abnormalities. With : Lexiscan administration,there was no significant net : ST-displacement,PVC or : chest pain. There were rare PACs. The O2 saturation was 96%RA : before and 99%RA : after the test. : CONCLUSION: Negative for ischemia by EKG criteria. Rare PACs. : Nuclear scan is : pending. : : Confirmed by John Cm ([id number]) on 10/07/2019 11:35:54 : AM Protocol Name: LEXISCAN Time In Exercise Phase: 00:04:00 Max. Systolic BP: 192 mmHg Max Diastolic BP: 90 mmHg Max Heart Rate: 70 BPM Max Predicted Heart Rate: 164 BPM Target HR Formula: (220 - Age)*85% Reason for Test: Pre-Op Evaluation Arrhythmias: atrial premature beats-isolated Resting ECG: abnormal ST Changes: none Overall Impression: Normal stress test Chest Pain: none HR Response To Exercise: BP Response To Exercise: Reason For Termination: Test protocol completed : albuterol, asa, atorvastatin : amlodipine, lasix, humalog, : Levothyroxine, Metoprolol : D3 Performing Organization Address City/State/Zipcode Phone Number [facility] EKG Echocardiogram 2D complete (10/07/2019 9:55 AM EST) Left Ventricular EF by Temadhaviholz 40 [facility] ECHO Method Specimen Narrative Performed At HEIGHT: 180.3 cm (5 ft 11.0 in) [facility] ECHO WEIGHT: 113.4 kg (250.0 lbs) BP: [...] m/s MV DecT: 340.60 ms MV Dec [place]: 2.05 m/s MV A Maksim: 0.52 m/s MV E/A Ratio: 1.34 MV PHT: 98.78 ms MVA By PHT: 2.23 cm LVOT Vmax: 0.81 m/s LVOT Vmean: 0.56 m/s LVOT maxP.65 mmHg LVOT meanP.38 mmHg AV Vmax: 0.89 m/s AV Vmean: 0.64 m/s AV maxP.19 mmHg AV meanP.77 mmHg AV VTI: 20.53 cm DVI: 1.05 Electronically Signed By: John Cm Sr, MD [facility] Electronically Signed On: 10/07/2019 11:34:46 Procedure Note Interface, Received Via [employer] - 10/07/2019 11:40 AM EST HEIGHT: [...] m/s MV DecT: 340.60 ms MV Dec [place]: 2.05 m/s MV A Maksim: 0.52 m/s MV E/A Ratio: 1.34 MV PHT: 98.78 ms MVA By PHT: 2.23 cm LVOT Vmax: 0.81 m/s LVOT Vmean: 0.56 m/s LVOT maxP.65 mmHg LVOT meanP.38 mmHg AV Vmax: 0.89 m/s AV Vmean: 0.64 m/s AV maxP.19 mmHg AV meanP.77 mmHg AV VTI: 20.53 cm DVI: 1.05 Electronically Signed By: John Cm Sr, MD [facility] Electronically Signed On: 10/07/2019 11:34:46 Performing Organization Address City/State/Zipcode Phone Number [facility] documented in this encounter Visit Diagnoses Diagnosis Preoperative examination, unspecified documented in this encounter Administered Medications Medication Order MAR Action Action Date Dose Rate Site regadenoson (LEXISCAN) 0.4 Given by IV push 10/07/2019 11:05 AM EST 0.4 mg MG/5ML injection 0.4 mg 0.4 mg, Intravenous, Once, Mon10/07/19 at 1115, For 1 dose, Administer IVP over 10 seconds, documented in this encounter
--- OUTSIDE RECORDS SUMMARY | 2019-10-19 11:08 | XMS REPORT | Summary of Care ---
:1965 Author Organization [facility] Address [address] [place] [address] Care Team Providers Name Role Phone Jose Manuel Young MD Primary Care Provider Encounter Details Date Type Department Care Team Description 10/08/2019 Hospital Encounter Nuclear Medicine Kerwin Mckenzie, [place] [facility] [address] [address] [place] [address] [place] [address] Allergies Active Allergy Reactions Severity Noted [...] 08/05/2019 Hepatitis C Screening (B. Completed 08/05/2019 [id number]) HIB Vaccines Aged Out No longer eligible [...] in MULTIPLE STUDY unspecified the results STRESS 65354 section. documented in this encounter Results NM Myocard Perfusion SPECT Multiple Study Stress (10/08/2019 11:05 AM EST) Specimen Impressions Performed At IMPRESSION: [facility] 1. Moderate-sized, predominantly fixed defect in [...] on 10/08/2019 3:43 PM. Narrative Performed At [facility] INDICATION: Kidney Transplant evaluation. PROCEDURE: The [...] at 42%%. Procedure Note Interface, Received Via [employer] - 10/08/2019 4:14 PM EST INDICATION: [...] PM. Performing Organization Address City/State/Zipcode Phone Number [facility] [address] [place] [address] documented in this encounter
--- OUTSIDE RECORDS SUMMARY | 2019-10-19 11:08 | XMS REPORT | Summary of Care ---
:1965 Author Organization [facility] Address [address] [place] [address] Care Team Providers Name Role Phone Jose Manuel Young MD Primary Care Provider Reason for Visit Auth/Cert Status Reason Specialty Diagnoses / Referred By Referred To Contact Procedures Contact Diagnoses R94.39 Positive cardiac stress test Neela Humphrey MD [address] [place] [phone] Email: [email or web address] Encounter Details Date Type Department Care Team Description 10/14/2019 Hospital Encounter HVC PERIOP Neela Humphrey MD [address] Suite [facility] [address] [place] [address] [phone] Allergies Active Allergy Reactions Severity Noted Date Comments Hydralazine Shortness Of Breath High 10/07/2019 documented as of this encounter (statuses as of 10/15/2019) Medications Medication Sig Dispensed Refills Start Date [...] Tablet Delayed Release mouth daily Atorvastatin Calcium Take 40 mg by 0 Active 40 MG Oral Tablet mouth every (LIPITOR) evening Metoprolol Succinate Take 150 mg by 0 Active ER 50 MG Oral Tablet mouth Two Times Extended Release 24 Daily Patient Hour (TOPROL-XL) states he takes 100 mg in morning and 50 mg at bedtime Vitamin D3 25 MCG Take 1,000 Units 0 Active (1000 UT) Oral Tablet by mouth daily (CHOLECALCIFEROL) Furosemide 20 MG Oral Take 20 mg by 0 Active Tablet (LASIX) mouth daily Ferrous Sulfate 325 Take 325 mg by 0 Active (65 Fe) MG Oral Tablet mouth daily with breakfast documented as of this encounter (statuses as of 10/15/2019) Active Problems Problem Noted Date Abnormal stress test 10/14/2019 CKD (chronic kidney disease), stage IV Diabetes mellitus, type II Hypertension documented as of this encounter (statuses as of 10/15/2019) Social History Tobacco Use Types Packs/Day Years Used Date Never Smoker 0 Smokeless Tobacco: Never Used Alcohol Use Drinks/Week oz/Week Comments Yes 1 Standard drinks or equivalent 1.0 Sex Assigned at Date Recorded Not on file Job Start Date Occupation Industry Not on file Not on file Not on file Travel History Travel Start Travel End No recent travel history available. documented as of this encounter Last Filed Vital Signs Vital Sign Reading Time Taken Comments Blood Pressure 165/90 10/14/2019 5:30 PM EST Pulse 57 10/14/2019 5:30 PM EST Temperature 36.8 10/14/2019 9:00 AM EST C (98.3 F) Respiratory Rate 18 10/14/2019 5:30 PM EST Oxygen Saturation 99% 10/14/2019 5:30 PM EST Inhaled Oxygen Concentration - - Weight - - Height - - Body Mass Index - - documented in this encounter Discharge Instructions Discharge Instr - Anju Floyd RN - 10/14/2019 5:36 PM EST Angiogram home instructions: 1. NO driving for one day. 2. Relax and take it easy for the next 2 days. No heavy lifting, straining, or yard work (mowing, plowing shoveling etc.) for 3 days. 3. Remove and replace the bandaid daily for 3 days. Use Tylenol for discomfort as directed and an ice pack over the puncture site 3-5 times daily for 30 minutes each time for discomfort over the next 3-4 days. 4. Shower and wash the puncture sites with soap and water daily. (with the bandaid off) 5. It is normal to have some swelling, tenderness and bruising at the puncture sites. 6. If you notice an enlarging lump where the puncture site is please call the office to be examined. 7. If you begin to bleed from the puncture site lay down and have a friend or family member apply finger pressure directly over the bandaid with two hands for ten full minutes without breaks. If the bleeding has stopped after 10 minutes lie still for an hour then take it easy for the rest of the day. Call the office to be examined or 911 if the bleeding doesn't stop. If you are alone call 911 and lie down and apply pressure to the area yourself. 8. Resume your pre -angiogram diet and continue taking your Medications as you did before -- see 10 9. Drink plenty of fluids at least 40 ounces over the next 12 hours (five 8- ounce glasses of water, milk, juice or soda). This is to help flush the contrast dye through your kidneys. If you are a dialysis patient drink only your normal amount. 10. Important -If you were asked to stop taking one of your diabetes medications (containing METFORMIN, or GLUCOPHAGE) prior to your angiogram, 11. Call the office if you develop a fever greater than 102 degrees, a rash, hives or itching or youcannot keep down solid food. 12. Call the office when you get home to schedule a follow-up appointment in two (2) weeks. 13. If you have questions or problems at home or you need to make or change a follow up appointment: [facility] [phone] [facility] [phone] Any satellite office: [phone] ([place], [facility], Teja Dunbar, [facility] office Bl) I documented in this encounter Progress Notes Margarita Gu PA - 10/14/2019 1:12 PM EST Lab Results Component Value Date CREATININE 5.16 (H) 10/14/2019 BUN 74 (H) 10/14/2019 NA 136 10/14/2019 K 6.1 (HH) 10/14/2019 CL 107 10/14/2019 Patient was given sodium bicarb and istat potassium was 5.7. D/w Dr. Humphrey will give albuterol nebulizer and calcium gluconate 1 gm iv over 1 hour. Recheck potassium at 1400. documented in this encounter Plan of Treatment Date Type Specialty Care Team Description 08/12/2020 Office Visit Transplant Name Type Priority Associated Diagnoses Order Schedule POCT i-STAT Point of Care STAT STAT for 1 venous CG8 Testing-Docked Occurrences starting Device 10/14/2019 until 10/14/2019 Health Maintenance Due Date Last Done Comments [...] 08/05/2019 Hepatitis C Screening (B. Completed 08/05/2019 [id number]) HIB Vaccines Aged Out No longer eligible based on patient's age to complete this topic Hepatitis A Vaccines Aged Out No longer eligible based on patient's age to complete this topic IPV Vaccines Aged Out No longer eligible based on patient's age to complete this topic documented as of this encounter Procedures Procedure Name Priority Date/Time Associated Diagnosis Comments CARDIAC CATH 10/14/2019 2:35 PM PROCEDURE LOG EST POCT ISTAT VENOUS Routine 10/14/2019 2:19 PM Results for this CG8 EST procedure are in the results section. POCT GLUCOSE, Routine 10/14/2019 2:18 PM Results for this DOCKED EST procedure are in the results section. POCT ISTAT VENOUS Routine 10/14/2019 12:40 PM Results for this CG8 EST procedure are in the results section. CBC STAT 10/14/2019 10:48 AM Results for this EST procedure are in the results section. BASIC METABOLIC STAT 10/14/2019 10:48 AM Results for this PANEL EST procedure are in the results section. POCT GLUCOSE, Routine 10/14/2019 10:45 AM Results for this DOCKED EST procedure are in the results section. HEALTH CARE FACILITY ADMINISTRATOR PROCEDURE Routine 10/14/2019 10:02 AM EST documented in this encounter Results CARDIAC CATH PROCEDURE LOG (10/14/2019 2:35 PM EST) Narrative Performed At POCT i-STAT venous CG8 (10/14/2019 2:19 PM EST) i-STAT Venous pH 7.32 (L) 7.36 - 7.41 [facility] POC i-STAT Venous PCO2 37 (L) 40 - 45 mmHg [facility] POC i-STAT Venous PO2 32 mmHg [facility] POC i-STAT Venous Base NEG 7 mmol/L [facility] POC i-STAT Venous SO2 57 (L) 60 - 85 % [facility] POC i-STAT Venous Total 20 mmol/L [facility] CO2 [facility] POC i-STAT Sodium 139 136 - 145 [facility] mmol/L [facility] POC i-STAT Potassium 5.2 (H) 3.4 - 5.1 [facility] mmol/L [facility] POC i-STAT Ionized 1.28 1.13 - 1.32 [facility] Calcium mmol/L [facility] POC i-STAT Glucose 295 (H) 70 - 140 mg/dL [facility] POC i-STAT Hematocrit 29 (L) 41 - 53 % [facility] POC i-STAT Hemoglobin 9.9 (L) 13.5 - 18.0 [facility] g/dL [facility] POC Specimen Whole Blood Performing Organization Address City/[facility] Phone Number POINT OF CARE TEST [address] [place] [address] [facility] POC [address] [place] [address] POCT glucose, docked (10/14/2019 2:18 PM EST) POC Glucose 278 (H) 70 - 140 mg/dL [facility] POC Specimen Whole Blood Performing Organization Address [facility] Phone Number POINT OF CARE TEST [address] [place] [address] [facility] POC [address] [place] [address] POCT i-STAT venous CG8 (10/14/2019 12:40 PM EST) i-STAT Venous pH 7.34 (L) 7.36 - 7.41 [facility] POC i-STAT Venous PCO2 36 (L) 40 - 45 mmHg [facility] POC i-STAT Venous PO2 30 mmHg [facility] POC i-STAT Venous Base NEG 6 mmol/L [facility] Excess [facility] POC i-STAT Venous SO2 54 (L) 60 - 85 % [facility] POC i-STAT Venous Total 21 mmol/L [facility] CO2 [facility] POC i-STAT Sodium 138 136 - 145 [facility] mmol/L [facility] POC i-STAT Potassium 5.7 (H) 3.4 - 5.1 [facility] mmol/L [facility] POC i-STAT Ionized 1.24 1.13 - 1.32 [facility] Calcium mmol/L [facility] POC i-STAT Glucose 321 (H) 70 - 140 mg/dL [facility] POC i-STAT Hematocrit 28 (L) 41 - 53 % [facility] POC i-STAT Hemoglobin 9.5 (L) 13.5 - 18.0 [facility] g/dL [facility] POC Specimen Whole Blood Performing Organization Address City/[facility] Phone Number POINT OF CARE TEST [address] [place] [address] [facility] POC [address] [place] [address] CBC (10/14/2019 10:48 AM EST) White Blood Cell 7.9 4 - 10 10*3/uL [facility] Red Blood Cell 3.49 (L) 4.6 - 6.1 [facility] 10*6/uL [facility] Hemoglobin 10.3 (L) 13.5 - 18 g/dL [facility] Hematocrit 31.7 (L) 41 - 53 % [facility] Mean Cell Volume 90.9 80 - 96 fL [facility] Mean Cell Hemoglobin 29.5 27 - 33 pg [facility] Mean Cell Hgb Conc 32.5 32.0 - 36.0 [facility] g/dL [facility] Pathology Red Cell Dist Width 15.4 (H) 11.5 - 14.5 % [facility] Platelet Count 230 150 - 400 [facility] 10*3/uL [facility] Pathology Specimen EDTA Whole Blood Performing Organization Address City/State/[facility] Phone Number [facility] [address] [place] [address] [phone] [facility] [address] [place] [address] Pathology Basic Metabolic Panel (10/14/2019 10:48 AM EST) Bicarbonate 16 (L) 22 - 29 [facility] mmol/L [facility]ology Chloride 107 98 - 107 [facility] mmol/L [facility]ology Creatinine 5.16 (H) 0.70 - 1.20 [facility] mg/dL [facility]ology Glucose 325 (H) 70 - 140 [facility] mg/dL [facility] Pathology Potassium 6.1 (HH) 3.4 - 5.1 [facility] Comment: mmol/L [facility] No Visible Hemolysis Pathology Results called to and read back by Diana Dubois RN [phone] by [phone] Sodium 136 136 - 145 [facility] mmol/L [facility] Pathology Blood Urea Nitrogen 74 (H) 6 - 20 mg/dL [facility]ology Anion Gap 13 8 - 15 mmol/L [facility]ology Osmolality, Ryan 316 (H) 275 - 300 [facility] mosm/kg [facility] Pathology BUN/Cre Ratio 14 [facility] Calcium 8.6 8.6 - 10.0 [facility] mg/dL [facility] GFR Non 11 (L) >60 [facility] [place] 2008 mL/min/1.73m2 [facility] CDK-EPI Pathology GFR 13 (L) >60 [facility] [place] 2009 mL/min/1.73m2 [facility] CKD-EPI Pathology Specimen Plasma Performing Organization Address City/[facility]/Zipcode Phone Number [facility] [address] [place] [address] [facility] [address] [place] [address] Pathology POCT glucose, docked (10/14/2019 10:45 AM EST) POC Glucose 309 (H) 70 - 140 mg/dL [facility] POC Specimen Whole Blood Performing Organization Address City/[facility] Phone Number POINT OF CARE TEST [address] [place], [place] [id number] [place] [address] POC [address] [place] [address] documented in this encounter Administered Medications Medication Order MAR Action Action Date Dose Rate Site albuterol (PROVENTIL) nebulizer Given 10/14/2019 1:24 PM EST 2.5 mg solution 2.5 mg 2.5 mg, Nebulization, Once, Mon10/14/19 at 1300, For 1 dose, For Adults Q8 Hours is Hospital Standard, all orders will be changed to this unless GIL is selected 'Yes' below. , calcium gluconate in NaCl 0.9 % New Bag 10/14/2019 1:06 PM EST 1 g 50 mL/ hr infusion 1 g/50 mL 1 g, Intravenous, Administer over 1 Hours, Once, Mon10/14/19 at 1300, For 1 dose, 1 g calcium gluconate = 90 mg elemental Ca++ = 4.5 mEq Ca++. Dosed on mg of calcium gluconate., sterile water 1,000 mL with sodium New Bag 10/14/2019 11:35 AM EST 300 mL/ hr bicarbonate 8.4 % 150 mEq infusion at 300 mL/hr, Intravenous, Continuous, Starting Mon10/14/19 at 1130, For 1 hour, Pre-op documented in this encounter
--- OUTSIDE RECORDS SUMMARY | 2019-10-19 11:09 | XMS REPORT | Continuity of Care Document ---
:1965 External Reference #:[id number] Author Name Stephanie Arango MD (transmitted by agent of provider Kamini Martinez) Address [address] [place] [address] Care Team Providers Name Role Phone Jose Manuel Young MD - Endocrinology, Care Team Information [employer] Operator [phone] Diabetes & Metabolism Problems Description No Information Available Social History Type Date Description Comments Sex Unknown Tobacco Use Start: Unknown Never Smoked Cigarettes ETOH Use Occasionally consumes alcohol Tobacco Use Start: Unknown Patient has never smoked Smoking Status Reviewed: 10/03/19 Patient has never smoked Exercise Type/Frequency Does not exercise Allergies, Adverse Reactions, Alerts Active Allergies Reaction Severity Comments Date Hydralazine makes him sick 10/03/2019 Inactive Allergies NKDA 06/20/2019 NKDA 10/03/2019 Medications Active Medications SIG Qnty Indications Ordering Date Provider Metoprolol Succinate 2 tablets by 180tabs Stephanie Adames 10/03/2019 ER mouth every Am & MD Nba 100mg Tablets ER 24HR 1 tab at bedtime Ferrousul 1 tab by mouth 3 45tabs N18.5 Stephanie Adames 07/18/2019 325(65Fe) mg times a week MD Nba Tablets Furosemide 2 Tabs in Am and 180tabs N18.5 Stephanie Whitten. 07/18/2019 20mg Tablets 1 Tab PM MD Nba Vitamin D3 1 by mouth every Unknown 50mcg (1999 Ut) Capsules Aspirin 1 by mouth every Unknown 81mg Tablets day Levothyroxine Sodium 1 by mouth every Unknown day 100mcg Tablets Amlodipine Besylate 1 by mouth every Unknown 10mg day Tablets Humalog Kwikpen 75 units per day Unknown coverage as 100Unit/ML Solution needed Pen-Inject Atorvastatin Calcium 1 by mouth every Unknown 40mg day Tablets History Medications Hydralazine HCL Take 1 Tablet By 180tabs N18.5 Jorgeammad A. 08/14/2019 - 25mg Mouth Twice MD Nba Unknown Tablets Daily Metoprolol Succinate take 1 tablet by 180tabs Jorgeammad A. 07/18/2019 - ER mouth twice MD Nba 10/03/2019 100mg Tablets ER daily 24HR Novolog Stephanie Whitten. 07/18/2019 - MD Nba 07/12/2019 Minoxidil 1 tab by mouth N18.5 Jorgeammad A. 07/12/2019 - 2.5mg every day at MD Nba 07/12/2019 Tablets bedtime Minoxidil 2 tab by mouth 30tabs Jorgeammad A. 07/12/2019 - 2.5mg every day at MD Nba 07/18/2019 Tablets bedtime Metoprolol Succinate 1 tab by mouth 30tabs Jorgeammad A. 07/12/2019 - ER every day MD Nba 07/12/2019 100mg Tablets ER 24HR Furosemide 1 tab by mouth 30tabs Jorgeammad A. 07/12/2019 - 20mg twice daily MD Nba 07/18/2019 Tablets Minoxidil 1 tab by mouth 30tabs N18.5 Jorgeammad A. 07/04/2019 - 2.5mg every day at MD Nba 07/12/2019 Tablets bedtime Metoprolol Succinate 2 tab by mouth 30tabs N18.5 Jorgeammad A. 07/04/2019 - ER every day at MD Nba 07/12/2019 50mg Tablets ER bedtime 24HR Metoprolol Succinate 1 tab by mouth 30tabs N18.5 Mohammad A. 06/20/2019 - ER every day at MD [facility]ba 07/04/2019 50mg Tablets ER bedtime 24HR Immunizations Description No Information Available Vital Signs Date Vital Result Comment 10/03/2019 9:26am Height 71 inches 5'11" Weight 252.00 lb Heart Rate 58 /min BP Systolic Sitting 171 mmHg left arm reg cuff BP Diastolic Sitting 77 mmHg left arm reg cuff O2 % BldC Oximetry 100 % room air BMI (Body Mass Index) 35.1 kg/m2 08/26/2019 9:47am Height 71 inches 5'11" Weight 252.12 lb Heart Rate 66 /min BP Systolic Sitting 152 mmHg left arm reg cuff BP Diastolic Sitting 73 mmHg left arm reg cuff O2 % BldC Oximetry 100 % room air BMI (Body Mass Index) 35.2 kg/m2 Results Test Acquired Date Facility Test Result H/L Range Note Laboratory test 09/17/2019 [facility] Albumin 3.5 g/dL Normal 3.2-5.2 [address] [place] [address] [phone] Neph Routine 09/17/2019 [facility] Total 223 mg/dL [address] [place] [address] Random Urine [phone] Creatinine Random Urine 61.64 mg/dL CBC Auto 09/17/2019 [facility] White Blood 6.3 10^3/uL Normal 3.5-10.[address] [place] [address] [phone] Red Blood Count 3.05 10^6/uL Low 4.18-5.48 Hemoglobin 9.1 g/dL Low 14.0-18.0 Hematocrit 28 % Low 42-52 Mean Corpuscular Volume 91 fL Normal 80-94 Mean Corpuscular Hemoglobin 30 pg Normal 27-31 Mean Corpuscular HGB Conc 33 g/dL Normal 31-36 Red Cell Distribution Width 15 % Normal 10-15 Platelet Count 261 10^3/uL Normal 150-450 Mean Platelet Volume 9.6 fL Normal 7.4-10.4 Abs Neutrophils 4.4 10^3/uL Normal 1.5-7.7 Abs Lymphocytes 0.9 10^3/uL Low 1.0-4.8 Abs Monocytes 0.7 10^3/uL Normal 0-0.8 Abs Eosinophils 0.3 10^3/uL Normal 0-0.6 Abs Basophils 0.1 10^3/uL Normal 0-0.2 Abs Nucleated RBC 0.0 10^3/uL Granulocyte % 69.1 % Lymphocyte % 14.5 % Monocyte % 11.1 % Eosinophil % 4.3 % Basophil % 1.0 % Nucleated Red Blood Cells % 0.0 Basic Metabolic 09/17/2019 [facility] Sodium 140 mmol/L Normal 135-[address] [place] [address] [phone] Co2 Carbon Dioxide 22 mmol/L Normal 22-32 Glucose 133 mg/dL High 70-100 Blood Urea Nitrogen 56 mg/dL High 6-24 Creatinine 4.12 mg/dL High 0.67-1.17 BUN/Creatinine Ratio 13.6 Normal 8-20 Calcium 8.7 mg/dL Normal 8.6-10.3 Egfr Non- 15.1 >60 Egfr 18.3 >60 2 Potassium 5.4 mmol/L High 3.5-5.0 Chloride 113 mmol/L High 101-111 Anion Gap 5 mmol/L Normal 2-11 Urinalysis Profile 09/17/2019 [facility] Urine Color Straw [address] [place] [address] [phone] Urine Appearance Clear Urine Specific [place] 1.010 Normal 1.010-1.030 Urine pH 5.0 Normal 5-9 Urine Urobilinogen Negative Negative Urine Ketones Negative Negative Urine Protein 2+(100 mg/dL) Abnormal Negative Urine Leukocytes Negative Negative Urine Blood 1+ Abnormal Negative Urine Nitrite Negative Negative Urine Bilirubin Negative Negative Urine Glucose 1+(50 mg/dL) Abnormal Negative Urine White Blood Cell Trace(0-5/hpf) Absent Urine Red Blood Cell Trace(0-2/hpf) Absent Urine Bacteria Absent Absent Iron & Iron Binding 09/17/2019 [facility] Iron 52 g/dL Normal 50-212 [address] [place] [address] [phone] Unsaturated Iron Binding < 222 g/dL Total Iron Binding Capacity 237 g/dL Low 250-450 Transferrin 169 mg/dL Low 203-362 % Iron Saturation 22 % Normal 15-55 Laboratory test 09/17/2019 [facility] Ferritin 78.0 ng/mL Normal 24-[address] [place] [address] [phone] Urine Culture And 09/17/2019 [facility] Urine SEE RESULT [address] [place] [address] [phone] Urine Culture And 08/23/2019 [facility] Urine SEE RESULT [address] [place] [address] [phone] Laboratory test 08/23/2019 [facility] Albumin 3.7 g/dL Normal 3.2-5.[address] [place] [address] [phone] B-Type Natriuretic Peptide BNP 697 pg/mL High <=100 Hemoglobin A1c (Glyco HGB) 9.3 % High 4.0-5.6 6 Urinalysis Profile 08/23/2019 [facility] Urine Color Straw [address] [place] [address] [phone] Urine Appearance Clear Urine Specific [place] 1.009 Low 1.010-1.030 Urine pH 5.0 Normal 5-9 Urine Urobilinogen Negative Negative Urine Ketones Negative Negative Urine Protein 2+(100 mg/dL) Abnormal Negative Urine Leukocytes Negative Negative Urine Blood 1+ Abnormal Negative Urine Nitrite Negative Negative Urine Bilirubin Negative Negative Urine Glucose 3+(>=500 mg/dL) Abnormal Negative Urine White Blood Cell Trace(0-5/hpf) Absent Urine Red Blood Cell Trace(0-2/hpf) Absent Urine Bacteria Absent Absent Urine Squamous Epithelial Cell Present Abnormal Absent Urine Hyaline Casts Present Abnormal Absent Basic Metabolic 08/23/2019 [facility] Sodium 137 mmol/L Normal 135-[address] [place] [address] [phone] Potassium 5.2 mmol/L High 3.5-5.0 Chloride 108 mmol/L Normal 101-111 Co2 Carbon Dioxide 21 mmol/L Low 22-32 Anion Gap 8 mmol/L Normal 2-11 Glucose 367 mg/dL High 70-100 Blood Urea Nitrogen 70 mg/dL High 6-24 Creatinine 4.69 mg/dL High 0.67-1.17 BUN/Creatinine Ratio 14.9 Normal 8-20 Calcium 8.9 mg/dL Normal 8.6-10.3 Egfr Non- 13.0 >60 Egfr 15.7 >60 7 CBC Auto 08/23/2019 [facility] White Blood 6.1 10^3/uL Normal 3.5-10.[address] [place] [address] [phone] Red Blood Count 3.29 10^6/uL Low 4.18-5.48 Hemoglobin 9.9 g/dL Low 14.0-18.0 Hematocrit 30 % Low 42-52 Mean Corpuscular Volume 92 fL Normal 80-94 Mean Corpuscular Hemoglobin 30 pg Normal 27-31 Mean Corpuscular HGB Conc 33 g/dL Normal 31-36 Red Cell Distribution Width 15 % Normal 10-15 Platelet Count 226 10^3/uL Normal 150-450 Mean Platelet Volume 9.3 fL Normal 7.4-10.4 Abs Neutrophils 4.1 10^3/uL Normal 1.5-7.7 Abs Lymphocytes 1.1 10^3/uL Normal 1.0-4.8 Abs Monocytes 0.5 10^3/uL Normal 0-0.8 Abs Eosinophils 0.4 10^3/uL Normal 0-0.6 Abs Basophils 0.1 10^3/uL Normal 0-0.2 Abs Nucleated RBC 0.0 10^3/uL Granulocyte % 66.0 % Lymphocyte % 18.5 % Monocyte % 8.7 % Eosinophil % 5.9 % Basophil % 0.9 % Nucleated Red Blood Cells % 0.0 Neph Routine 08/23/2019 [facility] Total Protein Random 165 mg/ dL [address] [facility] [place] [address] [phone] Creatinine Random Urine 57.83 mg/dL Laboratory 08/13/2019 [facility] B-Type 750 pg/mL High <=[address] [facility] [place] [address] Peptide BNP [phone] Pthi 08/13/2019 [facility] Calcium (PTH 8.6 mg/dL Normal 8.6- 10.[address] [facility] Intact) [place] [address] [phone] PTH Intact 319.6 pg/mL High 12-88 Laboratory test 08/13/2019 [facility] Ferritin 82.0 ng/mL Normal 24-336 finding [address] [place] [address] [phone] Albumin 3.5 g/dL Normal 3.2-5.2 Hemoglobin A1c (Glyco HGB) 9.2 % High 4.0-5.6 8 Iron & Iron Binding 08/13/2019 [facility] Iron 51 g/dL Normal 50-212 [address] [place] [address] [phone] Unsaturated Iron Binding < 224 g/dL Total Iron Binding Capacity 239 g/dL Low 250-450 Transferrin 171 mg/dL Low 203-362 % Iron Saturation 21 % Normal 15-55 Urinalysis Profile 08/13/2019 [facility] Urine Color Yellow [address] [place] [address] [phone] Urine Appearance Clear Urine Specific [place] 1.011 Normal 1.010-1.030 Urine pH 5.0 Normal 5-9 Urine Urobilinogen Negative Negative Urine Ketones Negative Negative Urine Protein 2+(100 mg/dL) Abnormal Negative Urine Leukocytes Negative Negative Urine Blood 1+ Abnormal Negative Urine Nitrite Negative Negative Urine Bilirubin Negative Negative Urine Glucose 1+(50 mg/dL) Abnormal Negative Urine White Blood Cell Absent Absent Urine Red Blood Cell Trace(0-2/hpf) Absent Urine Bacteria Absent Absent Urine Squamous Epithelial Cell Present Abnormal Absent Basic Metabolic 08/13/2019 [facility] Sodium 136 mmol/L Normal 135-[address] [place] [address] [phone] Chloride 109 mmol/L Normal 101-111 Co2 Carbon Dioxide 20 mmol/L Low 22-32 Glucose 250 mg/dL High 70-100 Blood Urea Nitrogen 75 mg/dL High 6-24 Creatinine 4.53 mg/dL High 0.67-1.17 BUN/Creatinine Ratio 16.6 Normal 8-20 Calcium 8.5 mg/dL Low 8.6-10.3 Egfr Non- 13.5 >60 Egfr 16.4 >60 9 Potassium 5.2 mmol/L High 3.5-5.0 Anion Gap 7 mmol/L Normal 2-11 CBC Auto 08/13/2019 [facility] White Blood 6.8 10^3/uL Normal 3.5-10.[address] [place] [address] [phone] Red Blood Count 3.28 10^6/uL Low 4.18-5.48 Hemoglobin 10.0 g/dL Low 14.0-18.0 Hematocrit 30 % Low 42-52 Mean Corpuscular Volume 91 fL Normal 80-94 Mean Corpuscular Hemoglobin 30 pg Normal 27-31 Mean Corpuscular HGB Conc 34 g/dL Normal 31-36 Red Cell Distribution Width 15 % Normal 10-15 Platelet Count 258 10^3/uL Normal 150-450 Mean Platelet Volume 9.9 fL Normal 7.4-10.4 Abs Neutrophils 4.9 10^3/uL Normal 1.5-7.7 Abs Lymphocytes 1.1 10^3/uL Normal 1.0-4.8 Abs Monocytes 0.5 10^3/uL Normal 0-0.8 Abs Eosinophils 0.3 10^3/uL Normal 0-0.6 Abs Basophils 0.1 10^3/uL Normal 0-0.2 Abs Nucleated RBC 0.0 10^3/uL Granulocyte % 71.1 % Lymphocyte % 16.1 % Monocyte % 7.3 % Eosinophil % 4.5 % Basophil % 1.0 % Nucleated Red Blood Cells % 0.0 Neph Routine 08/13/2019 [facility] Total Protein Random 238 mg/ dL [address] [place] [address] [phone] Creatinine Random Urine 83.54 mg/dL Laboratory test 07/25/2019 [facility] Hepatitis B Negative Negative [address] [place] [address] [phone] Hepatitis B Dyan AB Titer Not Immune Abnormal Immune Hepatitis B Surface Ag Nonreactive Nonreactive Hepatitis C Antibody 07/25/2019 [facility] HCV Index 0.01 s/c [address] [place] [address] [phone] Hepatitis C Antibody Negative Negative Quantiferon-TB 07/25/2019 [facility] QuantiferonTb Negative Negative [address] [place] [address] [phone] TB1 Ag minus Nil Result 0.00 IU/mL TB2 Ag minus Nil Result -0.02 IU/mL Mitogen minus Nil Result 3.61 IU/mL Nil Result 0.05 IU/mL Urine Culture And 07/24/2019 [facility] Urine SEE RESULT [address] [place] [address] [phone] Laboratory test 07/24/2019 [facility] Albumin 3.6 g/dL Normal 3.2- finding [address] 5.2 [place] [address] [phone] B-Type Natriuretic Peptide BNP 378 pg/mL High <=100 Phosphorus 4.0 mg/dL Normal 2.5-5.0 Calcium 8.7 mg/dL Normal 8.6-10.3 Urinalysis Profile 07/24/2019 [facility] Urine Color Straw [address] [place] [address] [phone] Urine Appearance Clear Urine Specific [place] 1.010 Normal 1.010-1.030 Urine pH 6.0 Normal 5-9 Urine Urobilinogen Negative Negative Urine Ketones Negative Negative Urine Protein 2+(100 mg/dL) Abnormal Negative Urine Leukocytes Negative Negative Urine Blood 1+ Abnormal Negative Urine Nitrite Negative Negative Urine Bilirubin Negative Negative Urine Glucose Negative Negative Urine White Blood Cell Trace(0-5/hpf) Absent Urine Red Blood Cell Trace(0-2/hpf) Absent Urine Bacteria Absent Absent Basic Metabolic 07/24/2019 [facility] Sodium 140 mmol/L Normal 135-[address] [place] [address] [phone] Potassium 4.5 mmol/L Normal 3.5-5.0 Chloride 112 mmol/L High 101-111 Co2 Carbon Dioxide 21 mmol/L Low 22-32 Anion Gap 7 mmol/L Normal 2-11 Glucose 58 mg/dL Low 70-100 Blood Urea Nitrogen 51 mg/dL High 6-24 Creatinine 4.26 mg/dL High 0.67-1.17 BUN/Creatinine Ratio 12.0 Normal 8-20 Egfr Non- 14.5 >60 Egfr 17.6 >60 13 CBC Auto 07/24/2019 [facility] White Blood 7.9 10^3/uL Normal 3.5-10.[address] [place] [address] [phone] Red Blood Count 3.20 10^6/uL Low 4.18-5.48 Hemoglobin 9.6 g/dL Low 14.0-18.0 Hematocrit 29 % Low 42-52 Mean Corpuscular Volume 91 fL Normal 80-94 Mean Corpuscular Hemoglobin 30 pg Normal 27-31 Mean Corpuscular HGB Conc 33 g/dL Normal 31-36 Red Cell Distribution Width 14 % Normal 10-15 Platelet Count 310 10^3/uL Normal 150-450 Mean Platelet Volume 9.2 fL Normal 7.4-10.4 Abs Neutrophils 5.4 10^3/uL Normal 1.5-7.7 Abs Lymphocytes 1.1 10^3/uL Normal 1.0-4.8 Abs Monocytes 0.9 10^3/uL High 0-0.8 Abs Eosinophils 0.4 10^3/uL Normal 0-0.6 Abs Basophils 0.1 10^3/uL Normal 0-0.2 Abs Nucleated RBC 0.0 10^3/uL Granulocyte % 68.9 % Lymphocyte % 14.5 % Monocyte % 10.8 % Eosinophil % 4.8 % Basophil % 1.0 % Nucleated Red Blood Cells % 0.0 Neph Routine 07/24/2019 [facility] Total Protein Random 215 mg/ dL [address] [facility] [place] [address] [phone] Creatinine Random Urine 77.01 mg/dL Laboratory test 07/16/2019 [facility] Ferritin 106.8 ng/mL Normal 24-336 finding [address] [place] [address] [phone] Hemoglobin A1c (Glyco HGB) 9.4 % High 4.0-5.6 14 Iron & Iron Binding 07/16/2019 [facility] Iron 26 g/dL Low 50-212 [address] [place] [address] [phone] Unsaturated Iron Binding < 212 g/dL Total Iron Binding Capacity 227 g/dL Low 250-450 Transferrin 162 mg/dL Low 203-362 % Iron Saturation 11 % Low 15-55 Laboratory test 07/16/2019 [facility] Phosphorus 4.8 mg/dL Normal 2.5-5.0 finding [address] [place] [address] [phone] Pthi 07/16/2019 [facility] Calcium (PTH 8.6 mg/dL Normal 8.6- 10.[address] [facility] Intact) [place] [address] [phone] PTH Intact 277.7 pg/mL High 12-88 Laboratory test 07/16/2019 [facility] Calcium 8.6 mg/dL Normal 8.6-10.[address] [place] [address] [phone] Urinalysis 07/16/2019 [facility] Urine Color Yellow Profile [address] [place] [address] [phone] Urine Appearance Cloudy Urine Specific [place] 1.011 Normal 1.010-1.030 Urine pH 5.0 Normal 5-9 Urine Urobilinogen Negative Negative Urine Ketones Negative Negative Urine Protein 3+(>=500 mg/dL) Abnormal Negative Urine Leukocytes Negative Negative Urine Blood Negative Negative Urine Nitrite Negative Negative Urine Bilirubin Negative Negative Urine Glucose 1+(50 mg/dL) Abnormal Negative Urine White Blood Cell Absent Absent Urine Red Blood Cell Absent Absent Urine Bacteria Absent Absent Urine Squamous Epithelial Cell Present Abnormal Absent Basic Metabolic 07/16/2019 [facility] Sodium 138 mmol/L Normal 135-[address] [place] [address] [phone] Chloride 111 mmol/L Normal 101-111 Co2 Carbon Dioxide 19 mmol/L Low 22-32 Glucose 197 mg/dL High 70-100 Blood Urea Nitrogen 67 mg/dL High 6-24 Creatinine 5.13 mg/dL High 0.67-1.17 BUN/Creatinine Ratio 13.1 Normal 8-20 Egfr Non- 11.7 >60 Egfr 14.2 >60 15 Potassium 5.1 mmol/L High 3.5-5.0 Anion Gap 8 mmol/L Normal 2-11 CBC Auto 07/16/2019 [facility] White Blood 7.2 10^3/uL Normal 3.5-10.[address] [place] [address] [phone] Red Blood Count 3.06 10^6/uL Low 4.18-5.48 Hemoglobin 9.3 g/dL Low 14.0-18.0 Hematocrit 28 % Low 42-52 Mean Corpuscular Volume 92 fL Normal 80-94 Mean Corpuscular Hemoglobin 31 pg Normal 27-31 Mean Corpuscular HGB Conc 33 g/dL Normal 31-36 Red Cell Distribution Width 14 % Normal 10-15 Platelet Count 291 10^3/uL Normal 150-450 Mean Platelet Volume 9.3 fL Normal 7.4-10.4 Abs Neutrophils 5.0 10^3/uL Normal 1.5-7.7 Abs Lymphocytes 1.1 10^3/uL Normal 1.0-4.8 Abs Monocytes 0.7 10^3/uL Normal 0-0.8 Abs Eosinophils 0.3 10^3/uL Normal 0-0.6 Abs Basophils 0.1 10^3/uL Normal 0-0.2 Abs Nucleated RBC 0.0 10^3/uL Granulocyte % 69.4 % Lymphocyte % 14.7 % Monocyte % 10.2 % Eosinophil % 4.7 % Basophil % 1.0 % Nucleated Red Blood Cells % 0.0 Neph Routine 07/16/2019 [facility] Total Protein Random 238 mg/ dL [address] [place] [address] [phone] Creatinine Random Urine 124.97 mg/dL Neph Routine 07/01/2019 [facility] Total Protein Random 212 mg/ dL [address] [place] [address] [phone] Creatinine Random Urine 76.65 mg/dL CBC Auto 07/01/2019 [facility] White Blood 7.4 10^3/uL Normal 3.5-10.[address] [place] [address] [phone] Red Blood Count 3.35 10^6/uL Low 4.18-5.48 Hemoglobin 10.5 g/dL Low 14.0-18.0 Hematocrit 31 % Low 42-52 Mean Corpuscular Volume 91 fL Normal 80-94 Mean Corpuscular Hemoglobin 31 pg Normal 27-31 Mean Corpuscular HGB Conc 34 g/dL Normal 31-36 Red Cell Distribution Width 14 % Normal 10-15 Platelet Count 259 10^3/uL Normal 150-450 Mean Platelet Volume 10.0 fL Normal 7.4-10.4 Abs Neutrophils 4.5 10^3/uL Normal 1.5-7.7 Abs Lymphocytes 1.6 10^3/uL Normal 1.0-4.8 Abs Monocytes 0.7 10^3/uL Normal 0-0.8 Abs Eosinophils 0.4 10^3/uL Normal 0-0.6 Abs Basophils 0.1 10^3/uL Normal 0-0.2 Abs Nucleated RBC 0.0 10^3/uL Granulocyte % 61.5 % Lymphocyte % 22.1 % Monocyte % 9.4 % Eosinophil % 5.7 % Basophil % 1.3 % Nucleated Red Blood Cells % 0.0 Basic Metabolic 07/01/2019 [facility] Sodium 140 mmol/L Normal 135-[address] [place] [address] [phone] Co2 Carbon Dioxide 19 mmol/L Low 22-32 Glucose 129 mg/dL High 70-100 Blood Urea Nitrogen 68 mg/dL High 6-24 Creatinine 4.75 mg/dL High 0.67-1.17 BUN/Creatinine Ratio 14.3 Normal 8-20 Calcium 8.5 mg/dL Low 8.6-10.3 Egfr Non- 12.8 >60 Egfr 15.5 >60 16 Potassium 5.1 mmol/L High 3.5-5.0 Chloride 113 mmol/L High 101-111 Anion Gap 8 mmol/L Normal 2-11 Urinalysis Profile 07/01/2019 [facility] Urine Color Straw [address] [place], [place] [id number] [phone] Urine Appearance Clear Urine Specific [place] 1.011 Normal 1.010-1.030 Urine pH 5.0 Normal 5-9 Urine Urobilinogen Negative Negative Urine Ketones Negative Negative Urine Protein 2+(100 mg/dL) Abnormal Negative Urine Leukocytes Negative Negative Urine Blood 1+ Abnormal Negative Urine Nitrite Negative Negative Urine Bilirubin Negative Negative Urine Glucose 1+(50 mg/dL) Abnormal Negative Urine White Blood Cell Trace(0-5/hpf) Absent Urine Red Blood Cell Trace(0-2/hpf) Absent Urine Bacteria Absent Absent Laboratory test 07/01/2019 [facility] Hemoglobin A1c 10.2 % High 4.0-5.6 [address] (Glyco HGB) [place], [place] [id number] [phone] Urine Culture And 07/01/2019 [facility] Urine Culture SEE [address] [place] [address] BELOW [phone] Neph Routine 06/17/2019 [facility] Total Protein 258 mg/dL [address] Random Urine [place], [place] [address] [phone] Creatinine Random Urine 82.83 mg/dL CBC Auto 06/17/2019 [facility] White Blood 6.8 10^3/uL Normal 3.5-10.[address] Count [place], [place] [id number] [phone] Red Blood Count 3.45 10^6/uL Low 4.18-5.48 Hemoglobin 10.5 g/dL Low 14.0-18.0 Hematocrit 31 % Low 42-52 Mean Corpuscular Volume 91 fL Normal 80-94 Mean Corpuscular Hemoglobin 30 pg Normal 27-31 Mean Corpuscular HGB Conc 34 g/dL Normal 31-36 Red Cell Distribution Width 14 % Normal 10-15 Platelet Count 275 10^3/uL Normal 150-450 Mean Platelet Volume 9.5 fL Normal 7.4-10.4 Abs Neutrophils 4.3 10^3/uL Normal 1.5-7.7 Abs Lymphocytes 1.4 10^3/uL Normal 1.0-4.8 Abs Monocytes 0.6 10^3/uL Normal 0-0.8 Abs Eosinophils 0.4 10^3/uL Normal 0-0.6 Abs Basophils 0.1 10^3/uL Normal 0-0.2 Abs Nucleated RBC 0.0 10^3/uL Granulocyte % 62.2 % Lymphocyte % 21.1 % Monocyte % 9.2 % Eosinophil % 6.3 % Basophil % 1.2 % Nucleated Red Blood Cells % 0.0 Basic Metabolic 06/17/2019 [facility] Sodium 139 mmol/L Normal 135-[address] [place] [address] [phone] Co2 Carbon Dioxide 20 mmol/L Low 22-32 Glucose 105 mg/dL High 70-100 Blood Urea Nitrogen 60 mg/dL High 6-24 Creatinine 4.32 mg/dL High 0.67-1.17 BUN/Creatinine Ratio 13.9 Normal 8-20 Calcium 8.9 mg/dL Normal 8.6-10.3 Egfr Non- 14.3 >60 Egfr 17.3 >60 19 Potassium 5.2 mmol/L High 3.5-5.0 Chloride 112 mmol/L High 101-111 Anion Gap 7 mmol/L Normal 2-11 Urinalysis Profile 06/17/2019 [facility] Urine Color Straw [address] [place] [address] [phone] Urine Appearance Clear Urine Specific [place] 1.011 Normal 1.010-1.030 Urine pH 5.0 Normal 5-9 Urine Urobilinogen Negative Negative Urine Ketones Negative Negative Urine Protein 3+(>=500 mg/dL) Abnormal Negative Urine Leukocytes Negative Negative Urine Blood 1+ Abnormal Negative Urine Nitrite Negative Negative Urine Bilirubin Negative Negative Urine Glucose 2+(150 mg/dL) Abnormal Negative Urine White Blood Cell Trace(0-5/hpf) Absent Urine Red Blood Cell Absent Absent Urine Bacteria Absent Absent Urine Squamous Epithelial Cell Present Abnormal Absent Urine Culture And 06/17[facility]2019 [facility] [facility] Urine [facility] SEE RESULT [address] [place] [address] [phone] 1 FASTING 2 Because ethnic data is not always readily available, this report includes an eGFR for both -Americans and non- Americans. The National Kidney Disease Education Program (NKDEP) does not endorse the use of the MDRD equation for patients that are not between the ages of 18 and 70, are , have extremes of body size, muscle mass, or nutritional status, or are non- or non-. According to the National Kidney Foundation, irrespective of diagnosis, the stage of the disease is based on the level of kidney function: Stage Description GFR(mL/min/1.73 m(2)) 1 Kidney damage with normal or decreased GFR 90 2 Kidney damage with mild decrease in GFR 60-89 3 Moderate decrease in GFR 30-59 4 Severe decrease in GFR 15-29 5 Kidney failure <15 (or dialysis) 3 FASTING 4 SEE RESULT BELOW Name: SONJA SZYMANSKI : [address]: Stephanie Arango MD Acct: [id number] Unit: [id number] AGE: 54 Location: LAB Re09/17/19 SEX: M Status: REG REF SPEC: [id number] LEXUS: 09/17/[address] [facility] [address]: Stephanie Arango MD REQ: [id number] RECD: 09/17/19 STATUS: LYNSEY LOPEZ DR: Jose Manuel Young MD _ SOURCE: URINE SPDESC: ORDERED: Urine Culture Procedure Result Reported Site Urine Culture Final 09/18/19- 1140 ML No Growth (<1,000 CFU/mL) * ML - Main Lab . END OF REPORT DEPARTMENT OF PATHOLOGY, [address] [place] [address] Thony Nguyen M.D. Director [facility] # [id number] 5 SEE RESULT BELOW Name: SONJA SZYMANSKI : [address]: Stephanie Arango MD Acct: [id number] Unit: [id number] AGE: 54 Location: [facility] Re08/23/19 SEX: M Status: REG REF SPEC: [id number] LEXUS: 08/23/[address]: Stephanie Arango MD REQ: [id number] RECD: 08/23/19 STATUS: COMP _ SOURCE: URINE SPDESC: ORDERED: Urine Culture Procedure Result Reported Site Urine Culture Final 08/25/19- 0847 ML No Growth (<1,000 CFU/mL) * ML - Main Lab . END OF REPORT DEPARTMENT OF PATHOLOGY, [address] [place] [address] Thony Nguyen M.D. Director [facility] # [id number] 6 Therapeutic target for the treatment of diabetes mellitus patients is <7% HBA1C, and in selective patients <6.0%. Please refer to [employer] diabetic care guidelines for further information. 7 Because ethnic data is not always readily available, this report includes an eGFR for both -Americans and non- Americans. The National Kidney Disease Education Program (NKDEP) does not endorse the use of the MDRD equation for patients that are not between the ages of 18 and 70, are , have extremes of body size, muscle mass, or nutritional status, or are non- or non-. According to the National Kidney Foundation, irrespective of diagnosis, the stage of the disease is based on the level of kidney function: Stage Description GFR(mL/min/1.73 m(2)) 1 Kidney damage with normal or decreased GFR 90 2 Kidney damage with mild decrease in GFR 60-89 3 Moderate decrease in GFR 30-59 4 Severe decrease in GFR 15-29 5 Kidney failure <15 (or dialysis) 8 Therapeutic target for the treatment of diabetes mellitus patients is <7% HBA1C, and in selective patients <6.0%. Please refer to [employer] diabetic care guidelines for further information. 9 Because ethnic data is not always readily available, this report includes an eGFR for both -Americans and non- Americans. The National Kidney Disease Education Program (NKDEP) does not endorse the use of the MDRD equation for patients that are not between the ages of 18 and 70, are , have extremes of body size, muscle mass, or nutritional status, or are non- or non-. According to the National Kidney Foundation, irrespective of diagnosis, the stage of the disease is based on the level of kidney function: Stage Description GFR(mL/min/1.73 m(2)) 1 Kidney damage with normal or decreased GFR 90 2 Kidney damage with mild decrease in GFR 60-89 3 Moderate decrease in GFR 30-59 4 Severe decrease in GFR 15-29 5 Kidney failure <15 (or dialysis) 10 Test Performed by: [place] [address] [employer] Cust[employer]ian: Parminder Pineda M.D. Ph.D.; CLIA# [id number] 11 M. tuberculosis infection NOT likely 12 SEE RESULT BELOW Name: SONJA SZYMANSKI : [address]: Stephanie Arango MD Acct: [id number] Unit: [id number] AGE: 54 Location: [facility] Re07/24/19 SEX: M Status: REG REF SPEC: [id number] LEXUS: 07/24/19-1223 [facility] [address]: Stephanie Arango MD REQ: [id number] RECD: 07/24/19-1236 STATUS:LYNSEY OLPEZ DR: Jose Manuel Young MD _ SOURCE: URINE [facility]: ORDERED: Urine Culture Procedure Result Reported Site Urine Culture Final 07/25/19- 1626 ML No Growth (<1,000 CFU/mL) * ML - Main Lab . END OF REPORT DEPARTMENT OF PATHOLOGY, [address] [place] [address] Thony Nguyen M.D. Director [facility] # [id number] 13 Because ethnic data is not always readily available, this report includes an eGFR for both -Americans and non- Americans. The National Kidney Disease Education Program (NKDEP) does not endorse the use of the MDRD equation for patients that are not between the ages of 18 and 70, are , have extremes of body size, muscle mass, or nutritional status, or are non- or non-. According to the National Kidney Foundation, irrespective of diagnosis, the stage of the disease is based on the level of kidney function: Stage Description GFR(mL/min/1.73 m(2)) 1 Kidney damage with normal or decreased GFR 90 2 Kidney damage with mild decrease in GFR 60-89 3 Moderate decrease in GFR 30-59 4 Severe decrease in GFR 15-29 5 Kidney failure <15 (or dialysis) 14 Therapeutic target for the treatment of diabetes mellitus patients is <7% HBA1C, and in selective patients <6.0%. Please refer to [employer] diabetic care guidelines for further information. 15 Because ethnic data is not always readily available, this report includes an eGFR for both -Americans and non- Americans. The National Kidney Disease Education Program (NKDEP) does not endorse the use of the MDRD equation for patients that are not between the ages of 18 and 70, are , have extremes of body size, muscle mass, or nutritional status, or are non- or non-. According to the National Kidney Foundation, irrespective of diagnosis, the stage of the disease is based on the level of kidney function: Stage Description GFR(mL/min/1.73 m(2)) 1 Kidney damage with normal or decreased GFR 90 2 Kidney damage with mild decrease in GFR 60-89 3 Moderate decrease in GFR 30-59 4 Severe decrease in GFR 15-29 5 Kidney failure <15 (or dialysis) 16 Because ethnic data is not always readily available, this report includes an eGFR for both -Americans and non- Americans. The National Kidney Disease Education Program (NKDEP) does not endorse the use of the MDRD equation for patients that are not between the ages of 18 and 70, are , have extremes of body size, muscle mass, or nutritional status, or are non- or non-. According to the National Kidney Foundation, irrespective of diagnosis, the stage of the disease is based on the level of kidney function: Stage Description GFR(mL/min/1.73 m(2)) 1 Kidney damage with normal or decreased GFR 90 2 Kidney damage with mild decrease in GFR 60-89 3 Moderate decrease in GFR 30-59 4 Severe decrease in GFR 15-29 5 Kidney failure <15 (or dialysis) 17 Therapeutic target for the treatment of diabetes mellitus patients is <7% HBA1C, and in selective patients <6.0%. Please refer to [employer] diabetic care guidelines for further information. 18 SEE RESULT BELOW Name: SONJA SZYMANSKI : [address]: Stephanie Arango MD Acct: [id number] Unit: [id number] AGE: 53 Location: [facility] Re07/01/19 SEX: M Status: REG REF SPEC: [id number] LEXUS: 07/01/[address]: Stephanie Arango MD REQ: [id number] RECD: 07/01/19 STATUS: COMP _ SOURCE: URINE SPDESC: ORDERED: Urine Culture Procedure Result Reported Site Urine Culture Final 07/02/19- 1216 ML No Growth (<1,000 CFU/mL) * ML - [facility] Lab . END OF REPORT DEPARTMENT OF PATHOLOGY, [address] [place] [address] Thony Nguyen M.D. Director [facility] # [id number] 19 Because ethnic data is not always readily available, this report includes an eGFR for both -Americans and non- Americans. The National Kidney Disease Education Program (NKDEP) does not endorse the use of the MDRD equation for patients that are not between the ages of 18 and 70, are , have extremes of body size, muscle mass, or nutritional status, or are non- or non-. According to the National Kidney Foundation, irrespective of diagnosis, the stage of the disease is based on the level of kidney function: Stage Description GFR(mL/min/1.73 m(2)) 1 Kidney damage with normal or decreased GFR 90 2 Kidney damage with mild decrease in GFR 60-89 3 Moderate decrease in GFR 30-59 4 Severe decrease in GFR 15-29 5 Kidney failure <15 (or dialysis) 20 SEE RESULT BELOW Name: SONJA SZYMANSKI : [address]: Stephanie Arango MD Acct: [id number] Unit: [id number] AGE: 53 Location: [facility] Re06/17/19 SEX: M Status: REG REF SPEC: [id number] LEXUS: 06/17/19-0835 [facility] DR: Stephanie Arango MD REQ: [id number] RECD: 06/17/19 STATUS: COMP _ SOURCE: URINE [facility]: ORDERED: Urine Culture Procedure Result Reported Site Urine Culture Final 06/18/19- 1156 ML No Growth (<1,000 CFU/mL) * ML - Main Lab . END OF REPORT DEPARTMENT OF PATHOLOGY, [address] [place] [address] Thony Nguyen M.D. Director [facility] # [id number] Procedures Description No Information Available Medical Devices Description No Information Available Encounters Type Date Location Provider Dx Diagnosis Office Visit 08/26/2019 [facility] Nephrology Stephanie Arango, I12.0 Hyp chr kidney 9:20a MD disease w stage 5 chr kidney disease or 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 N18.5 Chronic kidney disease, stage 5 E87.5 Hyperkalemia E78.2 Mixed hyperlipidemia Office Visit 08/14/2019 9:00a [facility] Nephrology Stephanie Adames I12.0 Hyp chr kidney MD Nba disease w stage 5 chr kidney disease or 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 N18.5 Chronic kidney disease, stage 5 Office Visit 07/25/2019 8:00a [facility] Nephrology Stephanie Adames I12.0 Hyp chr kidney MD Nba disease w stage 5 chr kidney disease or 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 N18.6 End stage renal disease E87.5 Hyperkalemia E78.2 Mixed hyperlipidemia I10 Essential (primary) hypertension I12.9 Hypertensive chronic kidney disease w stg 1-4/unsp chr kdny Office Visit 07/22/2019 8:45a [facility] John Jack, N18.6 End stage [facility] HAYDEE DOMINGUEZ renal disease Office Visit 07/18/2019 8:00a [facility] Nephrology Stephanie Adames I12.0 Hyp chr kidney MD Nba disease w stage 5 chr kidney disease or 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 N18.5 Chronic kidney disease, stage 5 E87.5 Hyperkalemia E78.2 Mixed hyperlipidemia I10 Essential (primary) hypertension I12.9 Hypertensive chronic kidney disease w stg 1-4/unsp chr kdny Office Visit 07/04/2019 8:30a [facility] Nephrology Stephanie Adames I12.0 Hyp chr kidney MD Nba disease w stage 5 chr kidney disease or 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 N18.5 Chronic kidney disease, stage 5 E87.5 Hyperkalemia E78.2 Mixed hyperlipidemia I10 Essential (primary) hypertension I50.9 Heart failure, unspecified Office Visit 06/20/2019 9:00a [facility] Nephrology Stephanie Adames N18.5 Chronic kidney MD Nba disease, stage 5 I12.9 Hypertensive chronic kidney disease w stg 1-4/unsp chr kdny E11.22 Type 2 diabetes mellitus w diabetic chronic kidney disease E87.5 Hyperkalemia E78.2 Mixed hyperlipidemia I10 Essential (primary) hypertension Assessments Date Code Description Provider 10/03/2019 N18.5 Chronic kidney disease, stage 5 Stephanie Arango MD 10/03/2019 E11.22 Type 2 diabetes mellitus with diabetic Stephanie Arango MD chronic kidney disease 10/03/2019 I12.0 Hypertensive chronic kidney disease Stephanie Arango MD with stage 5 chronic kidney disease or end stage renal disease 10/03/2019 E87.5 Hyperkalemia Stephanie Arango MD 10/03/2019 E78.2 Mixed hyperlipidemia Stephanie Arango MD 08/27/2019 N18.5 Chronic kidney disease, stage 5 Dayna Kumari, TAPE CUTTING MACHINE OPERATOR 08/27/2019 Z01.818 Encounter for other preprocedural Dayna Kumari , TAPE CUTTING MACHINE OPERATOR examination 08/26/2019 I12.0 Hypertensive chronic kidney disease Stephanie Arango MD with stage 5 chronic kidney disease or end stage renal disease 08/26/2019 E11.22 Type 2 diabetes mellitus with diabetic Stephanie Arango MD chronic kidney disease 08/26/2019 N18.5 Chronic kidney disease, stage 5 Stephanie Arango MD 08/26/2019 E87.5 Hyperkalemia Stephanie Arango MD 08/26/2019 E78.2 Mixed hyperlipidemia Stephanie Arango MD 08/14/2019 I12.0 Hypertensive chronic kidney disease Stephanie Arango MD with stage 5 chronic kidney disease or end stage renal disease 08/14/2019 E11.22 Type 2 diabetes mellitus with diabetic Stephanie Arango MD chronic kidney disease 08/14/2019 N18.5 Chronic kidney disease, stage 5 Stephanie Arango MD 07/29/2019 N18.6 End stage renal disease John Jack MD, FACS 07/25/2019 I12.0 Hypertensive chronic kidney disease Stephanie Arango MD with stage 5 chronic kidney disease or end stage renal disease 07/25/2019 E11.22 Type 2 diabetes mellitus with diabetic Stephanie Arango MD chronic kidney disease 07/25/2019 N18.6 End stage renal disease Stephanie Arango MD 07/25/2019 E87.5 Hyperkalemia Stephanie Arango MD 07/25/2019 E78.2 Mixed hyperlipidemia Stephanie Arango MD 07/25/2019 I10 Essential (primary) hypertension Stephanie Arango MD 07/25/2019 I12.9 Hypertensive chronic kidney disease Stephanie Arango MD with stage 1 through stage 4 chronic kidney disease, or unspecified chronic kidney disease 07/22/2019 N18.6 End stage renal disease John Jack MD, [facility] 07/18/2019 I12.0 Hypertensive chronic kidney disease Stephanie Arango MD with stage 5 chronic kidney disease or end stage renal disease 07/18/2019 E11.22 Type 2 diabetes mellitus with diabetic Stephanie Arango MD chronic kidney disease 07/18/2019 N18.5 Chronic kidney disease, stage 5 Stephanie Arango MD 07/18/2019 E87.5 Hyperkalemia Stephanie Arango MD 07/18/2019 E78.2 Mixed hyperlipidemia Stephanie Arango MD 07/18/2019 I10 Essential (primary) hypertension Stephanie Arango MD 07/18/2019 I12.9 Hypertensive chronic kidney disease Stephanie Arango MD with stage 1 through stage 4 chronic kidney disease, or unspecified chronic kidney disease 07/04/2019 I12.0 Hypertensive chronic kidney disease Stephanie Arango MD with stage 5 chronic kidney disease or end stage renal disease 07/04/2019 E11.22 Type 2 diabetes mellitus with diabetic Stephanie Arango MD chronic kidney disease 07/04/2019 N18.5 Chronic kidney disease, stage 5 Stephanie Arango MD 07/04/2019 E87.5 Hyperkalemia Stephanie Arango MD 07/04/2019 E78.2 Mixed hyperlipidemia Stephanie Arango MD 07/04/2019 I10 Essential (primary) hypertension Stephanie Arango MD 07/04/2019 I50.9 Heart failure, unspecified Stephanie Arango MD 06/20/2019 N18.5 Chronic kidney disease, stage 5 Stephanie Arango MD 06/20/2019 I12.9 Hypertensive chronic kidney disease Stephanie Arango MD with stage 1 through stage 4 chronic kidney disease, or unspecified chronic kidney disease 06/20/2019 E11.22 Type 2 diabetes mellitus with diabetic Stephanie Arango MD chronic kidney disease 06/20/2019 E87.5 Hyperkalemia Stephanie Arango MD 06/20/2019 E78.2 Mixed hyperlipidemia Stephanie Arango MD 06/20/2019 I10 Essential (primary) hypertension Stephanie Arango MD Plan of Treatment Future Appointment(s):11/04/2019 9:40 am - Stephanie Arango MD at [facility] Njwsrvhhvy27/23/2020 - Stephanie Arango MDN18.5 Chronic kidney disease, stage 5Follow up:1 month f/u with labsE11.22 Type 2 diabetes mellitus with diabetic chronic kidney bjlssjyZ43.0 Hypertensive chronic kidney disease with stage 5 chronic kidney disease or end stage renal rmnumqxK65.5 EvxfwhwrdlpnW52.2 Mixed hyperlipidemia Functional Status Description No Information Available Mental Status Description No Information Available Referrals Refer to Dr Reason for Referral Status Appt Date John Jack MD CKD stage 5 into ESRD, needs PD catheter placement Sent [address] [facility] [address] [phone]
--- OUTSIDE RECORDS SUMMARY | 2019-10-19 11:09 | XMS REPORT | Continuity of Care Document ---
:1965 External Reference #:[id number] Author Name Stephanie Arango MD (transmitted by agent of provider Kamini Martinez) Address [address] [place] [address] Care Team Providers Name Role Phone Jose Manuel Young MD - Endocrinology, Care Team Information Pick Up Driver [phone] Diabetes & Metabolism Problems Description No Information Available Social History Type Date Description Comments Sex Unknown Tobacco Use Start: Unknown Never Smoked Cigarettes ETOH Use Occasionally consumes alcohol Tobacco Use Start: Unknown Patient has never smoked Smoking Status Reviewed: 08/26/19 Patient has never smoked Exercise Type/Frequency Does not exercise Allergies, Adverse Reactions, Alerts Description No Known Drug Allergies Medications Active Medications SIG Qnty Indications Ordering Date Provider Hydralazine HCL Take 1 Tablet By 180tabs N18.5 Stephanie A. 08/14/2019 25mg Mouth Twice MD Nba Tablets Daily Metoprolol Succinate Take 1 Tablet By 180tabs Stephanie A. 07/18/2019 ER Mouth Twice MD Nba 100mg Tablets ER 24HR Daily Ferrousul 1 tab by mouth 3 45tabs N18.5 Mohammad A. 07/18/2019 325(65Fe) mg times a week MD Nba Tablets Furosemide 2 Tabs in Am and 180tabs N18.5 Jorgeammajuan A. 07/18/2019 20mg Tablets 1 Tab PM MD Nba Atorvastatin Calcium 1 by mouth every Unknown 40mg day Tablets Humalog Kwikpen 75 units per day Unknown coverage as 100Unit/ML Solution needed Pen-Inject Amlodipine Besylate 1 by mouth every Unknown 10mg day Tablets Levothyroxine Sodium 1 by mouth every Unknown day 100mcg Tablets Aspirin 1 by mouth every Unknown 81mg Tablets DR day Vitamin D3 1 by mouth every Unknown 50mcg (1999 Ut) Capsules History Medications Novolog Stephanie Adames 07/18/2019 - MD Nba 07/12/2019 Minoxidil 1 tab by mouth N18.5 Jorgeammad A. 07/12/2019 - 2.5mg every day at MD Nba 07/12/2019 Tablets bedtime Minoxidil 2 tab by mouth 30tabs Stephanie Whitten. 07/12/2019 - 2.5mg every day at MD Nba 07/18/2019 Tablets bedtime Metoprolol Succinate 1 tab by mouth 30tabs Jorgeammad A. 07/12/2019 - ER every day MD Nba 07/12/2019 100mg Tablets ER 24HR Furosemide 1 tab by mouth 30tabs Stephanie Whitten. 07/12/2019 - 20mg twice daily MD Nba 07/18/2019 Tablets Minoxidil 1 tab by mouth 30tabs N18.5 Jerzyd Maria Dolores. 07/04/2019 - 2.5mg every day at MD [...] Available Vital Signs Date Vital Result Comment 08/26/2019 9:47am Height 71 inches 5'11" Weight 252.12 lb Heart Rate 66 /min BP Systolic Sitting 152 mmHg left arm reg cuff BP Diastolic Sitting 73 mmHg left arm reg cuff O2 % BldC Oximetry 100 % room air BMI (Body Mass Index) 35.2 kg/m2 08/14/2019 9:13am Height 71 inches 5'11" Weight 250.00 lb Heart Rate 55 /min BP Systolic Sitting 146 mmHg L arm BP Diastolic Sitting 75 mmHg L arm O2 % BldC Oximetry 99 % BMI (Body Mass Index) 34.9 kg/m2 Results Test Acquired Date Facility Test Result H/L Range Note Neph Routine 08/23/2019 [facility] Total Protein 165 mg/dL [address] [place] [address] [phone] Creatinine Random Urine 57.83 mg/dL CBC Auto 08/23/2019 [facility] White Blood 6.1 10^3/uL Normal 3.5-10.[address] [place] [address] [phone] Red Blood Count 3.29 10^6/uL Low 4.18-5.48 [...] Red Blood Cells % 0.0 Basic Metabolic 08/23/2019 [facility] Sodium 137 mmol/L Normal 135-[address] [place] [address] [phone] Potassium 5.2 mmol/L High 3.5-5.0 Chloride 108 mmol/L Normal 101-111 Co2 Carbon Dioxide 21 mmol/L Low 22-32 Anion Gap 8 mmol/L Normal 2-11 Glucose 367 mg/dL High 70-100 Blood Urea Nitrogen 70 mg/dL High 6-24 Creatinine 4.69 mg/dL High 0.67-1.17 BUN/Creatinine Ratio 14.9 Normal 8-20 Calcium 8.9 mg/dL Normal 8.6-10.3 Egfr Non- 13.0 >60 Egfr 15.7 >60 1 Urinalysis Profile 08/23/2019 [facility] Urine Color Straw [address] [place] [address] [phone] Urine Appearance Clear Urine Specific [place] 1.009 Low 1.010-1.030 Urine pH 5.0 Normal [...] Absent Urine Hyaline Casts Present Abnormal Absent Laboratory test 08/23/2019 [facility] Albumin 3.7 g/dL Normal 3.2-5.[address] [place] [address] [phone] B-Type Natriuretic Peptide BNP 697 pg/mL High <=100 Hemoglobin A1c (Glyco HGB) 9.3 % High 4.0-5.6 2 Urine Culture And 08/23/2019 [facility] Urine Culture SEE RESULT [address] [place] [address] [phone] Laboratory test 08/13/2019 [facility] B-Type 750 pg/mL High <= [address] Natriuretic 0 [place] [address] Peptide BNP [phone] Pthi 08/13/2019 [facility] Calcium (PTH 8.6 mg/dL Normal 8.6- [address] Intact) 10.3 [place] [address] [phone] PTH Intact 319.6 pg/mL High 12-88 Laboratory test 08/13/2019 [facility] Ferritin 82.0 ng/mL Normal 24-[address] [place] [address] [phone] Albumin 3.5 g/dL Normal 3.2-5.2 Hemoglobin A1c (Glyco HGB) 9.2 % High 4.0-5.6 4 Iron & Iron Binding 08/13/2019 [facility] Iron 51 g/dL Normal 50-[address] [place], [place] [id number] [phone] Unsaturated Iron Binding < 224 g/dL Total Iron Binding Capacity 239 g/dL Low 250-450 Transferrin 171 mg/dL Low 203-362 % Iron Saturation 21 % Normal 15-55 Urinalysis Profile 08/13/2019 [facility] Urine Color Yellow [address] [place] [address] [phone] Urine Appearance Clear Urine Specific [place] 1.011 Normal 1.010-1.030 Urine pH 5.0 Normal [...] Cell Present Abnormal Absent Basic Metabolic 08/13/2019 [facility] Sodium 136 mmol/L Normal 135-145 Panel [address] [place] [address] [phone] Chloride 109 mmol/L Normal 101-111 Co2 Carbon Dioxide 20 mmol/L Low 22-32 Glucose 250 mg/dL High 70-100 Blood Urea Nitrogen 75 mg/dL High 6-24 Creatinine 4.53 mg/dL High 0.67-1.17 BUN/Creatinine Ratio 16.6 Normal 8-20 Calcium 8.5 mg/dL Low 8.6-10.3 Egfr Non- 13.5 >60 Egfr 16.4 >60 5 Potassium 5.2 mmol/L High 3.5-5.0 Anion Gap 7 mmol/L Normal 2-11 CBC Auto 08/13/2019 [facility] White Blood 6.8 10^3/uL Normal 3.5-10.[address] [place] [address] [phone] Red Blood Count 3.28 10^6/uL Low 4.18-5.48 [...] Blood Cells % 0.0 Neph Routine 08/13/2019 [facility] Total Protein Random 238 mg/ dL [address] [place] [address] [phone] Creatinine Random Urine 83.54 mg/dL Laboratory test 07/25/2019 [facility] Hepatitis B Negative Negative [address] [place] [address] [phone] Hepatitis B Dyan AB Titer Not Immune Abnormal Immune Hepatitis B Surface Ag Nonreactive Nonreactive Hepatitis C Antibody 07/25/2019 [facility] HCV Index 0.01 s/c [address] [place] [address] [phone] Hepatitis C Antibody Negative Negative Quantiferon-TB 07/25/2019 [facility] QuantiferonTb Negative Negative 7 Gold Plus [address] [place] [address] [phone] TB1 Ag minus Nil Result 0.00 IU/mL TB2 Ag minus Nil Result -0.02 IU/mL Mitogen minus Nil Result 3.61 IU/mL Nil Result 0.05 IU/mL Urine Culture And 07/24/2019 [facility] Urine SEE RESULT [address] [place] [address] [phone] Laboratory test 07/24/2019 [facility] Albumin 3.6 g/dL Normal 3.2-[address] .2 [place] [address] [phone] B-Type Natriuretic Peptide BNP 378 pg/mL High <=100 Phosphorus 4.0 mg/dL Normal 2.5-5.0 Calcium 8.7 mg/dL Normal 8.6-10.3 Urinalysis Profile 07/24/2019 [facility] Urine Color Straw [address] [place] [address] [phone] Urine Appearance Clear Urine Specific [place] 1.010 Normal 1.010-1.030 Urine pH 6.0 Normal 5-9 Urine Urobilinogen Negative Negative Urine Ketones Negative Negative Urine Protein 2+(100 mg/dL) Abnormal Negative Urine Leukocytes Negative Negative Urine Blood 1+ Abnormal Negative Urine Nitrite Negative Negative Urine Bilirubin Negative Negative Urine Glucose Negative Negative Urine White Blood Cell Trace(0-5/hpf) Absent Urine Red Blood Cell Trace(0-2/hpf) Absent Urine Bacteria Absent Absent Basic Metabolic 07/24/2019 [facility] Sodium 140 mmol/L Normal 135-[address] [place] [address] [phone] Potassium 4.5 mmol/L Normal 3.5-5.0 Chloride 112 mmol/L High 101-111 Co2 Carbon Dioxide 21 mmol/L Low 22-32 Anion Gap 7 mmol/L Normal 2-11 Glucose 58 mg/dL Low 70-100 Blood Urea Nitrogen 51 mg/dL High 6-24 Creatinine 4.26 mg/dL High 0.67-1.17 BUN/Creatinine Ratio 12.0 Normal 8-20 Egfr Non- 14.5 >60 Egfr 17.6 >60 9 CBC Auto 07/24/2019 [facility] White Blood 7.9 10^3/uL Normal 3.5-10.[address] [place] [address] [phone] Red Blood Count 3.20 10^6/uL Low 4.18-5.48 [...] Blood Cells % 0.0 Neph Routine 07/24/2019 [facility] Total Protein Random 215 mg/ dL [address] [facility] [place] [address] [phone] Creatinine Random Urine 77.01 mg/dL Laboratory test 07/16/2019 [facility] Ferritin 106.8 ng/mL Normal 24-336 finding [address] [place] [address] [phone] Hemoglobin A1c (Glyco HGB) 9.4 % High 4.0-5.6 10 Iron & Iron Binding 07/16/2019 [facility] Iron 26 g/dL Low 50-212 [place] [address] [phone] Unsaturated Iron Binding < 212 g/dL Total Iron Binding Capacity 227 g/dL Low 250-450 Transferrin 162 mg/dL Low 203-362 % Iron Saturation 11 % Low 15-55 Laboratory test 07/16/2019 [facility] Phosphorus 4.8 mg/dL Normal 2.5-5.0 finding [address] [place] [address] [phone] Pthi 07/16/2019 [facility] Calcium (PTH 8.6 mg/dL Normal 8.6- 10.3 [facility] Intact) [place] [address] [phone] PTH Intact 277.7 pg/mL High 12-88 Laboratory test 07/16/2019 [facility] Calcium 8.6 mg/dL Normal 8.6-10.3 [place] [address] [phone] Urinalysis 07/16/2019 [facility] Urine Color Yellow Profile [address] [place] [address] [phone] Urine Appearance Cloudy Urine Specific [place] 1.011 Normal 1.010-1.030 Urine pH 5.0 Normal [...] Cell Present Abnormal Absent Basic Metabolic 07/16/2019 [facility] Sodium 138 mmol/L Normal 135-[address] [place] [address] [phone] Chloride 111 mmol/L Normal 101-111 Co2 Carbon Dioxide 19 mmol/L Low 22-32 Glucose 197 mg/dL High 70-100 Blood Urea Nitrogen 67 mg/dL High 6-24 Creatinine 5.13 mg/dL High 0.67-1.17 BUN/Creatinine Ratio 13.1 Normal 8-20 Egfr Non- 11.7 >60 Egfr 14.2 >60 11 Potassium 5.1 mmol/L High 3.5-5.0 Anion Gap 8 mmol/L Normal 2-11 CBC Auto 07/16/2019 [facility] White Blood 7.2 10^3/uL Normal 3.5-10.[address] [place] [address] [phone] Red Blood Count 3.06 10^6/uL Low 4.18-5.48 [...] Blood Cells % 0.0 Neph Routine 07/16/2019 [facility] Total Protein Random 238 mg/ dL [address] [place] [address] [phone] Creatinine Random Urine 124.97 mg/dL Neph Routine 07/01/2019 [facility] Total Protein Random 212 mg/ dL [address] [place] [address] [phone] Creatinine Random Urine 76.65 mg/dL CBC Auto 07/01/2019 [facility] White Blood 7.4 10^3/uL Normal 3.5-10.[address] [place] [address] [phone] Red Blood Count 3.35 10^6/uL Low 4.18-5.48 [...] Blood Cells % 0.0 Basic Metabolic 07/01/2019 [facility] Sodium 140 mmol/L Normal 135-[address] [place] [address] [phone] Co2 Carbon Dioxide 19 mmol/L Low 22-32 Glucose 129 mg/dL High 70-100 Blood Urea Nitrogen 68 mg/dL High 6-24 Creatinine 4.75 mg/dL High 0.67-1.17 BUN/Creatinine Ratio 14.3 Normal 8-20 Calcium 8.5 mg/dL Low 8.6-10.3 Egfr Non- 12.8 >60 Egfr 15.5 >60 12 Potassium 5.1 mmol/L High 3.5-5.0 Chloride 113 mmol/L High 101-111 Anion Gap 8 mmol/L Normal 2-11 Urinalysis Profile 07/01/2019 [facility] Urine Color Straw [address] [place], [place] [address] [phone] Urine Appearance Clear Urine Specific [place] 1.011 Normal 1.010-1.030 Urine pH 5.0 Normal [...] Urine Bacteria Absent Absent Laboratory test 07/01/2019 [facility] Hemoglobin A1c 10.2 % High 4.0-5.6 [address] (Glyco HGB) [place] [address] [phone] Urine Culture And 07/01/2019 [facility] Urine Culture SEE [address] [place] [address] BELOW [phone] Neph Routine 06/17/2019 [facility] Total Protein 258 mg/dL [address] Random Urine [place], [place] [address] [phone] Creatinine Random Urine 82.83 mg/dL CBC Auto 06/17/2019 [facility] White Blood 6.8 10^3/uL Normal 3.5-10.[address] Count [place], [place] [address] [phone] Red Blood Count 3.45 10^6/uL Low 4.18-5.48 [...] Blood Cells % 0.0 Basic Metabolic 06/17/2019 [facility] Sodium 139 mmol/L Normal 135-145 Panel [address] [place] [address] [phone] Co2 Carbon Dioxide 20 mmol/L Low 22-32 Glucose 105 mg/dL High 70-100 Blood Urea Nitrogen 60 mg/dL High 6-24 Creatinine 4.32 mg/dL High 0.67-1.17 BUN/Creatinine Ratio 13.9 Normal 8-20 Calcium 8.9 mg/dL Normal 8.6-10.3 Egfr Non- 14.3 >60 Egfr 17.3 >60 15 Potassium 5.2 mmol/L High 3.5-5.0 Chloride 112 mmol/L High 101-111 Anion Gap 7 mmol/L Normal 2-11 Urinalysis Profile 06/17/2019 [facility] Urine Color Straw [address] [place] [address] [phone] Urine Appearance Clear Urine Specific [place] 1.011 Normal 1.010-1.030 Urine pH 5.0 Normal [...] Present Abnormal Absent Urine Culture And 06/17/2019 [facility] Urine Culture SEE RESULT [address] [place] [address] [phone] 1 Because ethnic data is not always readily [...] 15-29 5 Kidney failure <15 (or dialysis) 2 Therapeutic target for the treatment of diabetes mellitus patients is <7% HBA1C, and in selective patients <6.0%. Please refer to [employer] diabetic care guidelines for further information. 3 SEE RESULT BELOW Name: SONJA SZYMANSKI : [address]: Stephanie Arango MD Acct: [id number] Unit: [id number] AGE: 54 Location: [facility] Re08/23/19 SEX: M Status: REG REF SPEC: [id number] LEXUS: 08/23/[address]: Stephanie Arango MD REQ: [id number] RECD: 08/23/19 STATUS: COMP _ SOURCE: URINE SPDESC: ORDERED: Urine Culture Procedure Result Reported Site Urine Culture Final 08/25/19- 0847 ML No Growth (<1,000 CFU/mL) * ML - Main Lab . END OF REPORT DEPARTMENT OF PATHOLOGY, [address] [place] [address] Thony Nguyen M.D. Director [facility] # [id number] 4 Therapeutic target for the treatment of diabetes mellitus patients is <7% HBA1C, and in selective patients <6.0%. Please refer to [employer] diabetic care guidelines for further information. 5 Because ethnic data is not always readily [...] 15-29 5 Kidney failure <15 (or dialysis) 6 Test Performed by: [facility] [address] [place] [address] Academic Adviser: Parminder Pineda M.D. Ph.D.; CLIA# [id number] 7 M. tuberculosis infection NOT likely 8 SEE RESULT BELOW Name: SONJA SZYMANSKI : [address]: Stephanie Arango MD Acct: [id number] Unit: [id number] AGE: 54 Location: [facility] Re07/24/19 SEX: M Status: REG REF SPEC: [id number] LEXUS: 07/24/[address] [facility] [address]: Stephanie Arango MD REQ: [id number] RECD: 07/24/19 STATUS:LYNSEY LOPEZ DR: Jose Manuel Young MD _ SOURCE: URINE SPDESC: ORDERED: Urine Culture Procedure Result Reported Site Urine Culture Final 07/25/19- 1626 ML No Growth (<1,000 CFU/mL) * ML - Main Lab . END OF REPORT DEPARTMENT OF PATHOLOGY, [address] [place] [address] Thony Nguyen M.D. Director [facility] # [id number] 9 Because ethnic data is not always [...] 5 Kidney failure <15 (or dialysis) 10 Therapeutic target for the treatment of diabetes mellitus patients is <7% HBA1C, and in selective patients <6.0%. Please refer to [employer] diabetic care guidelines for further information. 11 Because ethnic data is not always readily [...] 15-29 5 Kidney failure <15 (or dialysis) 12 Because ethnic data is not always readily [...] 15-29 5 Kidney failure <15 (or dialysis) 13 Therapeutic target for the treatment of diabetes mellitus patients is <7% HBA1C, and in selective patients <6.0%. Please refer to [employer] diabetic care guidelines for further information. 14 SEE RESULT BELOW Name: SONJA SZYMANSKI : [address]: Stephanie Arango MD Acct: [id number] Unit: [id number] AGE: 53 Location: [facility] Re07/01/19 SEX: M Status: REG REF SPEC: [id number] LEXUS: 07/01/19-[address] [facility] [address]: Stephanie Arango MD REQ: [id number] RECD: 07/01/19 STATUS: COMP _ SOURCE: URINE [facility]: ORDERED: Urine Culture Procedure Result Reported Site Urine Culture Final 07/02/19- 1216 ML No Growth (<1,000 CFU/mL) * ML - Main Lab . END OF REPORT DEPARTMENT OF PATHOLOGY, [address] [place] [address] Thony Nguyen M.D. Director [facility] # [id number] 15 Because ethnic data is not always [...] 5 Kidney failure <15 (or dialysis) 16 SEE RESULT BELOW Name: SONJA SZYMANSKI : [address]: Stephanie Arango MD Acct: [id number] Unit: [id number] AGE: 53 Location: [facility] Re06/17/19 SEX: M Status: REG REF SPEC: [id number] LEXUS: 06/17/[address]: Stephanie Arango MD REQ: [id number] RECD: 06/17/19 STATUS: COMP _ SOURCE: URINE SPDESC: ORDERED: Urine Culture Procedure Result Reported Site Urine Culture Final 10/08/19- 1156 ML No Growth (<1,000 CFU/mL) * ML - Main Lab . END OF REPORT DEPARTMENT OF PATHOLOGY, [address] [place] [address] Thony Nguyen M.D. 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 N18.5 Chronic kidney disease, stage 5 Office Visit 07/25/2019 8:00a [facility] Nephrology Stephanie Adames I12.0 Hyp chr kidney [...] John Jack, N18.6 End stage [facility] , FACS renal disease Office Visit 07/18/2019 8:00a [facility] Nephrology Stephanie Adames I12.0 Hyp chr kidney MD Nba disease w stage 5 chr kidney disease or 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 N18.5 Chronic kidney disease, stage 5 E87.5 Hyperkalemia E78.2 Mixed hyperlipidemia I10 Essential (primary) hypertension I12.9 Hypertensive chronic kidney disease w stg 1-4/unsp chr kdny Office Visit 07/04/2019 8:30a [facility] Nephrology Stephanie Adames I12.0 Hyp chr kidney MD Nba disease w stage 5 chr kidney disease or 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 N18.5 Chronic kidney disease, stage 5 E87.5 Hyperkalemia E78.2 Mixed hyperlipidemia I10 Essential (primary) hypertension I50.9 Heart failure, unspecified Office Visit 06/20/2019 9:00a [facility] Nephrology Stephanie Adames N18.5 Chronic kidney MD Nba disease, stage 5 I12.9 Hypertensive chronic kidney disease w stg 1-4/unsp chr kdny E11.22 Type 2 diabetes mellitus w diabetic chronic kidney disease E87.5 Hyperkalemia E78.2 Mixed hyperlipidemia I10 Essential (primary) hypertension Assessments Date Code Description Provider 08/26/2019 N18.5 Chronic kidney disease, stage 5 Stephanie Arango MD 08/26/2019 E11.22 Type 2 diabetes mellitus with diabetic Stephanie Arango MD chronic kidney disease 08/26/2019 E87.5 Hyperkalemia Stephanie Arango MD 08/26/2019 E78.2 Mixed hyperlipidemia Stephanie Arango MD 08/26/2019 I12.0 Hypertensive chronic kidney disease with Stephanie Arango MD stage 5 chronic kidney disease or end stage renal disease 08/14/2019 I12.0 Hypertensive chronic kidney disease with Stephaine Arango MD stage 5 chronic kidney disease or end stage renal disease 08/14/2019 E11.22 Type 2 diabetes mellitus with diabetic Stephanie Arango MD chronic kidney disease 08/14/2019 N18.5 Chronic kidney disease, stage 5 Stephanie Arango MD 07/29/2019 N18.6 End stage renal disease John Jack MD, FACS 07/25/2019 I12.0 Hypertensive chronic kidney disease with Stephanie Arango MD stage 5 chronic kidney disease or end stage renal disease 07/25/2019 E11.22 Type 2 diabetes mellitus with jasiel Arango MD chronic kidney disease 07/25/2019 N18.6 End stage renal disease Stephanie Arango MD 07/25/2019 E87.5 Hyperkalemia Stephanie Arango MD 07/25/2019 E78.2 Mixed hyperlipidemia Stephanie Arango MD 07/25/2019 I10 Essential (primary) hypertension Stephanie Arango MD 07/25/2019 I12.9 Hypertensive chronic kidney disease with Stephanie Arango MD stage 1 through stage 4 chronic kidney disease, or unspecified chronic kidney disease 07/22/2019 N18.6 End stage renal disease John Jack MD, [facility] 07/18/2019 I12.0 Hypertensive chronic kidney disease with Stephanie Arango MD stage 5 chronic kidney disease or end stage renal disease 07/18/2019 E11.22 Type 2 diabetes mellitus with diabetic Stephanie Arango MD chronic kidney disease 07/18/2019 N18.5 Chronic kidney disease, stage 5 Stephanie Arango MD 07/18/2019 E87.5 Hyperkalemia Stephanie Arango MD 07/18/2019 E78.2 Mixed hyperlipidemia Stephanie Arango MD 07/18/2019 I10 Essential (primary) hypertension Stephanie Arango MD 07/18/2019 I12.9 Hypertensive chronic kidney disease with Stephanie Arango MD stage 1 through stage 4 chronic kidney disease, or unspecified chronic kidney disease 07/04/2019 I12.0 Hypertensive chronic kidney disease with Stephanie Arango MD stage 5 chronic kidney disease or end [...] MD 06/20/2019 I12.9 Hypertensive chronic kidney disease with Stephanie Arango MD stage 1 through stage 4 chronic kidney disease, or unspecified chronic kidney disease 06/20/2019 E11.22 Type 2 diabetes mellitus with diabetic Stephanie Arango MD chronic kidney disease 06/20/2019 E87.5 Hyperkalemia Stephanie Arango MD 06/20/2019 E78.2 Mixed hyperlipidemia Stephanie Arango MD 06/20/2019 I10 Essential (primary) hypertension Stephanie Arango MD Plan of Treatment Future Appointment(s):10/03/2019 9:20 am - Stephanie Arango MD at [facility] [email or web address]/23/2020 10:00 am - John Jack MD, FACS at [facility]09/25/2019 7:30 am - John Jack MD, FACS at [facility]08/26/2019 - Stephanie Arango MDN18.5 Chronic kidney disease, stage 5Follow up:1 month f/u with labsE11.22 Type 2 diabetes mellitus with diabetic chronic kidney vcuwfknH05.5 XzfgghlwlhzlN21.2 Mixed mywiwcbdzrzakbE54.0 Hypertensive chronic kidney disease with stage 5 chronic kidney disease or end stage renal disease Functional Status Description No Information Available Mental Status Description No Information Available Referrals Refer to Dr Reason for Referral Status Appt Date John Jack MD CKD stage 5 into ESRD, needs PD catheter placement Sent [address] [facility] [address] [facility] [address] [phone]
--- NOTE | 2019-10-19 11:16 | ED ---
Neurological HPI - HPI Summary HPI Summary: This patient is a 54 year old M brought to [facility] by EMS accompanied by daughter and with a chief complaint of unresponsiveness upon finding pt at 1000 today 10/19/19. Symptoms aggravated by nothing. Symptoms alleviated by nothing. EMS reports diabetic, kidney issues due to diabetes not on dialysis, possible kidney transplant but because of blockage going to get bypass surgery. Per EMS, pt is currently more alert and has been answering questions. Pt reports he does not remember this morning or last night, denies hx of low sugar with diabetes, does not feel any pain and feels normal. Pt answers month and yr correctly. Denies numbness or tingling, weakness, vision problems, or high bp. Reports thyroid issues. Denies allergies, smoking, or drug use. Per , stress test taken recently and needs to get double bypass surgery. described find him this morning in a state of being awake but could not consume liquids and that these episodes of low blood surgery happen frequently (4th since June) but pt usually comes back faster and that this episode is the worst one. - History of Current Complaint Stated Complaint: AMS PER EMS Time Seen by Provider: 10/19/19 11:05 Hx Obtained From: Patient, Family/[employer] - , EMS Onset/Duration: Started hours ago, Still Present Aggravating: Nothing Alleviating: Nothing Associated Signs and Symptoms: Positive: Memory Loss. Negative: Visual Changes , Weakness, Numbness - Allergy/Home Medications Allergies/Adverse Reactions: Allergies Allergy/AdvReac Type Severity Reaction Status Date / Time No Known Allergies Allergy Verified 08/01/16 13:26 PMH/Surg Hx/FS Hx/Imm Hx Endocrine/Hematology History: Reports: Hx Diabetes - TYPE 1 Cardiovascular History: Reports: Hx Hypertension - ON MEDS Denies: Other Cardiovascular Problems/Disorders Respiratory History: Reports: Hx Asthma - FROM , BEING TREATED GI History: Reports: Hx Gastroesophageal Reflux Disease Denies: Other GI Disorders Sensory History: Reports: Hx Cataracts, Hx Contacts or Glasses - GLASSES Opthamlomology History: Reports: Hx Cataracts, Hx Contacts or Glasses - GLASSES - Surgical History Surgery Procedure, Year, and Place: [place] [facility] [place] Hx Anesthesia Reactions: No Infectious Disease History: Denies: Traveled Outside the [place] in Last 30 Days - Family History Known Family History: Positive: Hypertension, Respiratory Disease - Social History Alcohol Use: Occasionally Hx Substance Use: No Substance Use Type: Reports: None Hx Tobacco Use: No Smoking Status (MU): Never Smoked Tobacco Review of Systems Neurological: Other - unresponsiveness, memory loss; denies visual changes Negative: Weakness, Numbness All Other Systems Reviewed And Are Negative: Yes Physical Exam - Summary Physical Exam Summary: Constitutional: Well-developed, Well-nourished, Alert. (-) Distressed Skin: Warm, Dry HENT: Normocephalic; Atraumatic Eyes: Conjunctiva normal Neck: Musculoskeletal ROM normal neck. (-) JVD, (-) Stridor, (-) Tracheal deviation Cardio: Rhythm regular, rate normal, Heart sounds normal; Intact distal pulses. Radial pulses are 2+ and symmetric. (-) Murmur Pulmonary/Chest wall: Effort normal. (-) Respiratory distress, (-) Wheezes, (-) Rales Abd: Soft. (-) Tenderness, (-) Distension, (-) Guarding, (-) Rebound Musculoskeletal: (-) Edema Lymph: (-) Cervical adenopathy Neuro: Alert, Oriented x3, Strength normal, Cranial nerves II-XII are grossly intact. (-) Dysmetria, (-) Nystagmus, (-) Ataxia by finger to nose testing, (-) Sensory deficit. nih scale 0 heart in the 40s Psych: Mood and affect Normal Triage Information Reviewed: Yes Vital Signs Reviewed: Yes Procedures - Sedation Patient Received Moderate/Deep Sedation with Procedure: No Diagnostics - Laboratory Result Diagrams: 10/19/19 11:23 10/19/19 11:23 Lab Statement: Any lab studies that have been ordered have been reviewed, and results considered in the medical decision making process. - EKG 1119 Cardiac Rate: NL - 46 BPM Summary of EKG Findings: EKG taken at 1119 reveals Sinus Bradycardia at 46 BPM, QTC 518 no evidence for heart block. Re-Evaluation - Re-Evaluation First Eval Re-Evaluation Time: 12:40 Comment: feeling better, continues to deny cp, repeat 2nd troponin for any changes Second Eval Re-Evaluation Time: 13:00 Comment: back to baseline, no CP Course/Dx - Course Course Of Treatment: Patient is here with altered mental status. Patient was found unresponsive by his who administered glucagon and EMS subsequently administered oral glucose. By time he arrived here, patient was answering questions appropriately and is able 3. Patient was a little sluggish and is answering without improved well he was in the ED. Patient had one performed which showed elevated creatinine consistent with his chronic kidney disease. Patient did have a troponin 0.04 but no ischemic changes on EKG and no chest pain. Patient had a repeat troponin which remained unchanged. This is likely due to patient's CKD. Patient is back to his baseline prior to discharge with no complaints. - Diagnoses Provider Diagnoses: Hyperglycemia, Altered mental status, Chronic kidney disease Discharge ED - Sign-Out/Discharge Documenting (check all that apply): Patient Departure - discharge - Discharge Plan Condition: Improved Disposition: HOME Patient Education Materials: Hypoglycemia in a Person with Diabetes (ED) Referrals: Jose Manuel Young MD [Primary Care Provider] - Additional Instructions: Please call your primary care doctor to set up an appointment next week to have your diabetes management plan readjusted Please return if you have one-sided weakness, altered mental status, one-sided numbness, slurred speech, any other concerning symptoms - Billing Disposition and Condition Condition: IMPROVED Disposition: Home - Attestation Statements Document Initiated by Luanne: Yes Documenting Paolaibe: Gavi Fletcher Provider For Whom Luanne is Documenting (Include Credential): Dr. Juice Stinson MD Scribe Attestation: Gavi Butler scribed for Dr. Juice Stinson MD on 10/19/19 at 2130. Scribe Documentation Reviewed: Yes Provider Attestation: The documentation as recorded by the Gavi villanueva accurately reflects the service I personally performed and the decisions made by me, Dr. Juice Stinson MD Status of Scribe Document: Viewed
[2019-10-19 11:34] LABS: ABS Basophils 0.1 10^3/ul (0-0.2); ABS Eosinophils 0.2 10^3/ul (0-0.6); ABS Lymphocytes 0.8 10^3/ul (1.0-4.8); ABS Monocytes 0.4 10^3/ul (0-0.8); ABS Neutrophils 4.3 10^3/ul (1.5-7.7); Eosinophil % 4.4 %; Hematocrit 33 % (42-52); Hemoglobin 10.8 g/dL (14.0-18.0); Lymphocyte % 13.5 %; Mean Corpuscular HGB Conc 33 g/dL (31-36); Mean Corpuscular Hemoglobin 29 pg (27-31); Mean Corpuscular Volume 89 fL (80-94); Mean Platelet Volume 9.6 fL (7.4-10.4); Platelet Count 236 10^3/uL (150-450); Red Blood Count 3.68 10^6 /uL (4.18-5.48); Red Cell Distribution Width 16 % (10-15); White Blood Count 5.7 10^3/uL (3.5-10.8)
[2019-10-19 11:51] LABS: ALT 13 U/L (7-52); AST 11 U/L (13-39); Albumin/Globulin Ratio 1.1 (1-3); Alkaline Phosphatase 124 U/L (34-104); Blood Urea Nitrogen 79 mg/dL (6-24); CO2 Carbon Dioxide 19 mmol/L (22-32); Calcium 8.7 mg/dL (8.6-10.3); EGFR African American 12.7 (>60); EGFR Non-African American 10.5 (>60); Globulin 3.6 g/dL (2-4); Glucose 158 mg/dL (70-100); Magnesium 2.4 mg/dL (1.9-2.7); Potassium 4.5 mmol/L (3.5-5.0); Sodium 140 mmol/L (135-145); Total Protein 7.6 g/dL (6.4-8.9)
[2019-10-19 11:55] LABS: Anion Gap 9 mmol/L (2-11); Chloride 112 mmol/L (101-111)
[2019-10-19 11:57] LABS: Troponin I 0.04 ng/mL (<0.03)
[2019-10-19 13:46] LABS: Troponin I 0.04 ng/mL (<0.03)
[2019-10-19 14:10] VITALS: BP 174/85
== END 2019-10-19 14:09 | disposition home or self-care (01) ==
LOC: ED 11:04
DX: E10.22 Type 1 diabetes mellitus with diabetic chronic kidney disease (principal); E10.65 Type 1 diabetes mellitus with hyperglycemia; I12.9 Hypertensive chronic kidney disease with stage 1 through stage 4 chronic kidney disease, or unspecified chronic kidney disease; N18.9 Chronic kidney disease, unspecified; J45.909 Unspecified asthma, uncomplicated; K21.9 Gastro-esophageal reflux disease without esophagitis; Z79.84 Long term (current) use of oral hypoglycemic drugs
CPT/HCPCS: 36415; 80053; 83735; 84484; 85025; 93005; 99283